=== PATIENT | female | born 1995 | race Caucasian/White ===

== ENCOUNTER 2022-06-11 15:27 | Emergency (ER) | payer OTHER, SELFPAY ==
--- OUTSIDE RECORDS SUMMARY | 2022-06-11 15:37 | XMS REPORT | Continuity of Care Document ---
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 leyva de 10 MG 00 for spasm, Oral Tablet X 3 day, # [Flexeril] 6 tab, 0 Refill(s) ibuprofen Yes 800 mg = 1 Me moria 800 mg oral 03-29 tab, PO, l tablet 04:07: Q8H, PRN Raul 00 Pain, Take with food, # 15 tab, 0 Refill(s) Ketorolac No 60 mg, Memori a 03-29 Route: IM, l 03:02: Drug form: Raul 00 INJ, ONCE, Dosing Weight 54.545, kg, Priority: STAT, Start date: 03/28/16 22:02:00 CDT, Stop date: 03/28/16 22:02:00 CDT Metoclopram 2014-10 Yes 10 mg = 1 M emoria maren 10 MG 0-08 tab, PO, l Oral Tablet 23:13: QID, X 7 He rmlisbet [Reglan] 00 day, # 28 tab, 0 Refill(s) Sodium 2014-10 No 500 mL, Memoria Chloride 0-08 500 ml/hr, l 0.154 21:00: Infuse Alta MEQ/ML 00 Over: 1 Injectable hr, Route: Solution IV, 500, Drug form: INJ, ONCE, Priority: STAT, Dosing Weight 54.545 kg, Start date: 07/08/15 16:00:00, Duration: 1 doses or times, Stop date: 07/08/15 16:00:00 Tylenol 2014-10 No Notes: Do Memor ia 0-08 not exceed l 21:00: 4 gm/day. Alta (Same as: Tylenol) Zofran 2014-10 No Notes: Memoria 0-08 (Same as: l 21:00: Zofran) MEDICATION WASTE Product Size: 4 mg Product Wasted: ___ mg Ondansetron 2014-10 No 4 mg, Memor ia 0-08 Route: l 20:59: IVP, ONCE, Dosing Weight 54.545, kg, Priority: STAT, Start date: 07/08/15 15:59:00, Stop date: 07/08/15 15:59:00 Saline 2014-1 No 10 mL, Memoria Flush 0.9% 0-08 Route: l 20:59: IVP, Drug Form: INJ, Dosing Weight 54.545, kg, PRN, PRN Line Flush, Start date: 07/08/15 15:59:00, Duration: 30 day, Stop date: 08/07/15 14:58:00 Vital Signs Vital Name Observation Time Observation Value Comments Source Systolic blood 2022-01-11 00:58:00 110 mm[Hg[facility] Diastolic blood 2022-01-11 00:58:00 60 mm[Hg] Unive [facility] Heart rate 2022-01-11 00:58:00 93 /min [facility] Body temperature 2022-01-11 00:58:00 37.22 [place] [facility] Respiratory rate 2022-01-11 00:58:00 18 /min [facility] Body height 2022-01-11 00:58:00 154.9 cm [facility] Body weight 2022-01-11 00:58:00 58.06 kg [facility] BMI 2022-01-11 00:58:00 24.19 kg/m2 [facility] Oxygen saturation in 2022-01-11 00:58:00 98 /min [facility] Arterial blood by [facility] Pulse oximetry [place] Height/Length 2021-10-18 08:41:17 154.94 cm Measured Weight Dosing 2021-10-18 08:41:17 78.47 kg Height/Length 2021-10-18 08:39:44 154.94 cm Measured Weight Dosing 2021-10-18 08:39:44 78.47 kg Height/Length 2021-10-18 08:38:01 154.94 cm Measured Weight Dosing 2021-10-18 08:38:01 78.47 kg Height/Length 2021-10-18 08:37:37 154.94 cm Measured Weight Dosing 2021-10-18 08:37:37 78.47 kg Height/Length 2021-10-18 08:37:06 154.94 cm Measured Weight Dosing 2021-10-18 08:37:06 78.47 kg Height/Length 2021-10-18 08:36:56 154.94 cm Measured Weight Dosing 2021-10-18 08:36:56 78.47 kg Height/Length 2021-10-18 08:36:49 154.94 cm Measured Weight Dosing 2021-10-18 08:36:49 78.47 kg Height/Length 2021-10-18 08:36:34 154.94 cm Measured Weight Dosing 2021-10-18 08:36:34 78.47 kg Weight Dosing 2019-10-15 15:23:27 Height/Length 2019-10-15 15:23:27 Measured Temperature Oral (F) 2022-05-26 21:45:00 98.4 F [facility] Heart Rate 2022-05-26 21:45:00 [facility] Respitory Rate 2022-05-26 21:45:00 Memori al [place] Systolic (mm Hg) 2022-05-26 21:45:00 Gurpreet rial Raul Diastolic (mm Hg) 2022-05-26 21:45:00 Mem orial Raul Heart Rate 2022-05-26 21:17:59 [facility] Respitory Rate 2022-05-26 21:17:59 Memori al Raul Temperature Oral (F) 2022-05-26 21:17:02 98.4 F [facility] Systolic (mm Hg) 2022-05-26 21:16:57 Gurpreet rial Alta Diastolic (mm Hg) 2022-05-26 21:16:57 Mem orial [place] Heart Rate 2022-05-26 21:16:57 [facility] Respitory Rate 2022-05-26 19:28:50 Memori al Raul Systolic (mm Hg) 2022-05-26 19:28:42 Gurpreet rial Alta Diastolic (mm Hg) 2022-05-26 19:28:42 Mem orial Raul Temperature Oral (F) 2022-05-26 19:28:08 98.3 F [facility] Weight 2022-05-26 16:11:00 [facility] Temperature Oral (F) 2020-10-13 11:07:00 98.9 F [facility] Heart Rate 2020-10-13 11:07:00 [facility] Respitory Rate 2020-10-13 11:07:00 Memori al Raul Systolic (mm Hg) 2020-10-13 11:07:00 Gurpreet rial Raul Diastolic (mm Hg) 2020-10-13 11:07:00 Mem orial Raul Systolic (mm Hg) 2020-10-13 05:33:00 Gurpreet rial Raul Diastolic (mm Hg) 2020-10-13 05:33:00 Mem orial Raul Temperature Oral (F) 2020-10-13 04:57:00 98.6 F [facility] Heart Rate 2020-10-13 04:57:00 [facility] Systolic (mm Hg) 2020-10-13 04:57:00 Gurpreet rial Raul Diastolic (mm Hg) 2020-10-13 04:57:00 Mem orial Raul Respitory Rate 2020-10-13 04:57:00 Memori al [place] Temperature Oral (F) 2020-10-13 01:38:00 99.1 F [facility] Respitory Rate 2020-10-13 01:38[facility] 2020-10-13 01:38:00 [facility] Height 2020-10-13 00:38:00 157.48 cm [facility] BMI Calculated 2020-10-13 00:38:00 [facility] al Alta Weight 2020-10-13 00:38:00 [facility] oxygen saturation, 2020-08-16 09:31:12 98 /min [facility] oximetry Health blood pressure, 2020-08-16 09:31:12 78 mm[Hg] [facility] diastolic Health blood pressure, 2020-08-16 09:31:12 118 mm[Hg] [facility] systolic Health pulse rate 2020-08-16 09:31:12 91 /[facility] temperature E&M 2020-08-16 09:31:12 98.0 [degF] [facility] Health weight E&M 2020-08-16 09:31:12 153 [lb_av] [facility] weight in kilograms 2020-08-16 09:31:12 69.55 kg L [facility]M [facility] height in 2020-08-16 09:31:12 [facility] [address] [facility] oxygen saturation, 2020-06-30 09:13:17 98 /min [facility] oximetry Health blood pressure, 2020-06-30 09:13:17 63 mm[Hg] Legac y [facility] diastolic Health blood pressure, 2020-06-30 09:13:17 103 mm[Hg] Legac y [facility] systolic Health pulse rate 2020-06-30 09:13:17 76 [facility] temperature E&M 2020-06-30 09:13:17 98.2 [degF] [facility] Health height in 2020-06-30 09:13:17 [facility] [facility] weight E&M 2020-06-30 09:13:17 137 [facility] weight in kilograms 2020-06-30 09:13:17 62.27 kg L [facility] Respitory Rate 2019-04-11 16:46:00 Memori al Raul Systolic (mm Hg) 2019-04-11 16:46:00 Gurpreet rial Raul Diastolic (mm Hg) 2019-04-11 16:46:00 Mem orial Raul Temperature Oral (F) 2019-04-11 16:46:00 98.5 F [facility] Heart Rate 2019-04-11 16:46:00 [facility] Respitory Rate 2019-04-11 12:00:00 Memori al [place] Temperature Oral (F) 2019-04-11 12:00:00 98.9 F [facility] Heart Rate 2019-04-11 12:00:00 [facility] Systolic (mm Hg) 2019-04-11 12:00:00 Gurpreet rial Alta Diastolic (mm Hg) 2019-04-11 12:00:00 Mem orial [place] Respitory Rate 2019-04-11 08:00:00 Memori al Raul Systolic (mm Hg) 2019-04-11 08:00:00 Gurpreet rial Raul Diastolic (mm Hg) 2019-04-11 08:00:00 Mem orial Raul Temperature Oral (F) 2019-04-11 08:00:00 98.6 F [facility] Weight 2019-04-10 20:52:00 [facility] Heart Rate 2019-04-10 20:52:00 [facility] Systolic (mm Hg) 2019-03-20 09:31:00 Gurpreet rial Raul Diastolic (mm Hg) 2019-03-20 09:31:00 Mem orial Raul Respitory Rate 2019-03-20 09:31:00 Memori al Raul Temperature Oral (F) 2019-03-20 09:31:00 98.0 F [facility] Heart Rate 2019-03-20 09:31:00 [facility] Systolic (mm Hg) 2019-03-20 08:00:00 Gurpreet rial Raul Diastolic (mm Hg) 2019-03-20 08:00:00 Mem orial Raul Respitory Rate 2019-03-20 08:00:00 Memori al Raul Heart Rate 2019-03-20 08:00:00 [facility] Temperature Oral (F) 2019-03-20 08:00:00 97.7 F [facility] Temperature Oral (F) 2019-03-20 07:22:00 97.7 F [facility] Weight 2019-03-20 07:22:00 [facility] BMI Calculated 2019-03-20 07:22:00 Memori al Raul Height 2019-03-20 07:22:00 157.48 cm [facility] Heart Rate 2019-03-20 07:22:00 [facility] Systolic (mm Hg) 2019-03-20 07:22:00 Gurpreet rial Raul Diastolic (mm Hg) 2019-03-20 07:22:00 Mem orial Alta Respitory Rate 2019-03-20 07:22:00 Memori al [place] Respitory Rate 2018-12-06 07:08:00 Memori al [place] Systolic (mm Hg) 2018-12-06 07:08:00 Gurpreet rial Alta Diastolic (mm Hg) 2018-12-06 07:08:00 Mem orial Raul Height 2018-12-06 05:40:00 170.18 cm [facility] Weight 2018-12-06 05:40:00 [facility] BMI Calculated 2018-12-06 05:40:00 Memori al Raul Systolic (mm Hg) 2018-12-06 05:40:00 Gurpreet rial Raul Diastolic (mm Hg) 2018-12-06 05:40:00 Mem orial [place] Respitory Rate 2018-12-06 05:40:00 Memori al [place] Heart Rate 2018-12-06 05:40:00 [facility] Temperature Oral (F) 2018-12-06 05:40:00 98 F [facility] Heart Rate 2017-03-30 13:00:00 [facility] Respitory Rate 2017-03-30 13:00:00 Memori al [place] Temperature Oral (F) 2017-03-30 13:00:00 98.6 F [facility] Systolic (mm Hg) 2017-03-30 13:00:00 Gurpreet rial Alta Diastolic (mm Hg) 2017-03-30 13:00:00 Mem orial [place] Systolic (mm Hg) 2017-03-30 05:03:00 Gurpreet rial [place]ta Diastolic (mm Hg) 2017-03-30 05:03:00 Mem orial [place] Respitory Rate 2017-03-30 05:03:00 Memori al Raul Heart Rate 2017-03-30 05:03:00 [facility] Temperature Oral (F) 2017-03-30 05:03:00 97.6 F [facility] Respitory Rate 2017-03-29 21:00:00 Memori al [place] Systolic (mm Hg) 2017-03-29 21:00:00 Gurpreet rial Alta Diastolic (mm Hg) 2017-03-29 21:00:00 Mem orial [place] Heart Rate 2017-03-29 21:00:00 [facility] Temperature Oral (F) 2017-03-29 21:00:00 98.4 F [facility] BMI Calculated 2017-03-28 18:04:00 Memori al Raul Height 2017-03-28 18:04:00 154.94 cm [facility] Weight 2017-03-28 18:04:00 [facility] Diastolic (mm Hg) 2016-12-04 20:49:00 Mem orial Raul Systolic (mm Hg) 2016-12-04 20:49:00 Gurpreet rial Raul Respitory Rate 2016-12-04 20:49:00 Memori al Raul Temperature Oral (F) 2016-12-04 20:49:00 98.1 F [facility] Heart Rate 2016-12-04 20:49:00 [facility] Systolic (mm Hg) 2016-12-04 18:33:00 Gurpreet rial Raul Diastolic (mm Hg) 2016-12-04 18:33:00 Mem orial Alta Respitory Rate 2016-12-04 18:33:00 Memori al Raul Heart Rate 2016-12-04 18:33:00 [facility] Height 2016-12-04 18:33:00 154.94 cm [facility] BMI Calculated 2016-12-04 18:33:00 Memori al [place] Temperature Oral (F) 2016-12-04 18:33:00 98.0 F [facility] Weight 2016-12-04 18:33:00 [facility] Respitory Rate 2016-03-29 04:10:00 Memori al Raul Temperature Oral (F) 2016-03-29 04:10:00 98.4 F [facility] Heart Rate 2016-03-29 04:10:00 [facility] Systolic (mm Hg) 2016-03-29 04:10:00 Gurpreet rial Raul Diastolic (mm Hg) 2016-03-29 04:10:00 Mem orial Alta BMI Calculated 2016-03-29 02:41:00 Memori al Raul Weight 2016-03-29 02:41:00 [facility] Height 2016-03-29 02:41:00 154.94 cm [facility] Heart Rate 2016-03-29 02:41:00 [facility] Respitory Rate 2016-03-29 02:41:00 Memori al [place] Temperature Oral (F) 2016-03-29 02:41:00 98.2 F [facility] Systolic (mm Hg) 2016-03-29 02:41:00 Gurpreet rial Alta Diastolic (mm Hg) 2016-03-29 02:41:00 Mem orial Raul Respitory Rate 2015-07-24 18:43:00 Memori al Raul Temperature Oral (F) 2015-07-24 18:43:00 98.5 F [facility] Heart Rate 2015-07-24 18:43:00 [facility] Systolic (mm Hg) 2015-07-24 18:43:00 Gurpreet rial Raul Diastolic (mm Hg) 2015-07-24 18:43:00 Mem orial Raul Weight 2015-07-24 17:46:00 [facility] BMI Calculated 2015-07-24 17:46:00 Memori al Raul Systolic (mm Hg) 2015-07-24 17:46:00 Gurpreet rial Alta Diastolic (mm Hg) 2015-07-24 17:46:00 Mem orial Raul Height 2015-07-24 17:46:00 154.94 cm [facility] Temperature Oral (F) 2015-07-24 17:46:00 97.9 F [facility] Respitory Rate 2015-07-24 17:46:00 Memori al Raul Heart Rate 2015-07-24 17:46:00 [facility] Temperature Oral (F) 2015-07-08 23:39:00 99.3 F [facility] Respitory Rate 2015-07-08 22:42:00 Memori al [place] Heart Rate 2015-07-08 22:42:00 [facility] Systolic (mm Hg) 2015-07-08 22:42:00 Gurpreet rial Raul Diastolic (mm Hg) 2015-07-08 22:42:00 Mem orial [facility] Heart Rate 2015-07-08 21:55:00 [facility] Respitory Rate 2015-07-08 21:55:00 Memori al Raul Systolic (mm Hg) 2015-07-08 21:55:00 Gurpreet rial Raul Diastolic (mm Hg) 2015-07-08 21:55:00 Mem orial Raul Weight 2015-07-08 19:50:00 [facility] Height 2015-07-08 19:50:00 154.94 cm [facility] Temperature Oral (F) 2015-07-08 19:50:00 98.3 F [facility] BMI Calculated 2015-07-08 19:50:00 Memori al Raul Systolic (mm Hg) 2015-07-08 19:50:00 Gurpreet rial Raul Diastolic (mm Hg) 2015-07-08 19:50:00 Mem orial Alta Heart Rate 2015-07-08 19:50:00 [facility] Respitory Rate 2015-07-08 19:50:00 Memori al Raul Procedures Procedure Date / Time Performing Clinician Source Performed NOTICE OF PRIVACY 2022-01-11 00:38:28 Doctor Unassigned, [facility] [place] [facility] CONSENT/REFUSAL FOR 2022-01-11 00:38:11 Doctor Unassigned, [facility] DIAGNOSIS AND TREATMENT [facility] LEVONORGESTREL (LILETTA) 2020-08-16 10:24:10 Francisco Becca Destiny monzon [facility] [address] [facility] Vaginal delivery of fetus 2014-10-01 00:00:00 Me jamar Carter Encounters Start End Encounter Admission Attending Care Care Encounter Source Date/Time Date/Time Type Type Clinicians Facility Department ID 2022-05-27 Outpatient [facility] [id number] [place] 08:45:[id number] [place] [address] 2021-07-17 Outpatient lc.rrobinso [facility] [id number] [facility] 14:39:19 n [id number] [facility] 2021-07-17 Outpatient lc.rrobinso [facility] [id number] [facility] 13:46:47 n [id number] [facility] 2021-07-17 Outpatient lc.rrobinso [facility] [id number] [facility] 11:40:59 n [id number] [facility] 2021-07-17 Outpatient lc.rrobinso [facility] [id number] [facility] 10:16:46 n [id number] [facility] 2021-07-14 Outpatient lc.rrobinso [facility] [id number] [facility] 22:06:54 n [id number] [facility] 2021-07-14 Outpatient lc.rrobinso [facility] [id number] Legacy 21:18:39 n [id number] [facility] 2021-07-14 Outpatient lc.rrobinso [facility] [id number] [facility] 20:59:30 n [id number] [facility] 2021-07-14 Outpatient lc.rrobinso [facility] [id number] [facility] 20:50:40 n [id number] [facility] 2021-07-14 Outpatient [facility] [id number] [facility] 20:10:01 [id number] [facility] 2022-05-26 2022-05-26 Emergency [facility] [id number] 16:07[facility]15 21:48:[address] 2022-05-26 2022-05-26 Outpatient Ricci [facility] [id number] 11:07:15 16:48:00 Maddi Nickerson 2022-05-26 2022-05-26 Emergency E RICCI, [id number] 11:07:00 16:48:00 LINDA 2022-01-10 2022-01-10 Emergency [place], [facility] [id number] Univers 19:53:00 20:20:00 [facility] [id number] ity [facility] [id number] [facility] [id number] [place] [id number] [address] 2022-01-10 2022-01-10 Emergency X RIDSEB, [facility] ERT [id number] Univers 19:53:00 20:20:00 MARINA [facility] 2020-10-13 2020-10-13 Emergency [facility] [id number] Memoria 00:22:49 11:10:00 r Alta 08 [facility] 2020-10-12 2020-10-13 Outpatient Dulce Chun [facility] [id number] 18:22:49 05:10:00 Torie 08 2020-08-16 2020-08-16 Office Becca Singh [facility] [id number] [facility] 00:00:00 00:00:00 Visit Celia Ang [id number] Beth Jackson [facility] 2020-06-30 2020-06-30 Office Becca Singh [facility] [id number] [facility] 00:00:00 00:00:00 Visit Celia Ang [id number] Maral Centeno [facility] 2019-10-15 2019-10-15 Outpatient [address] [place] [facility] [place] [id number] 14:43:00 14:43:00 [place] [facility] 2019-10-15 2019-10-15 Outpatient 3 [place] [facility] [place] [id number] 14:43:00 14:43:00 [place] -[id number] [facility] 2019-04-10 2019-04-11 Emergency nullFl[facility] [id number] Memoria 20:44:00 16:54:00 winter Golden l [facility] 2019-04-10 2019-04-11 Outpatient Marilin Kennedy [facility] [id number] 15:44:00 11:54:00 Mario 07 2019-04-10 2019-04-10 Emergency E [facility] [id number] Memoria 15:44:00 15:44:00 shanta Omer l [facility] 2019-03-20 2019-03-20 Emergency [facility]Fl[facility] [id number] Memoria 07:22:31 09:45:00 winter Carter Lucy [facility] 2019-03-20 2019-03-20 Outpatient MARK Kaplan [facility] [id number] 02:22:31 04:45:00 Lisa 06 Ana Maria Stack 2019-03-20 2019-03-20 Emergency E [facility] [id number] Memoria 02:22:00 02:22:00 shanta Carter Li Kan l 2018-12-06 2018-12-06 Emergency [facility] [id number] Memoria 05:19:00 07:16:00 winter Daugherty [facility] 2018-12-05 2018-12-06 Outpatient MARK Kaplan [facility] [id number] 23:19:00 01:16:00 Lisa 05 Ana Maria Stack 2018-06-21 2018-06-22 [facility] [id number] Donovan 00:00:00 00:00:00 [facility] 2017-03-28 2017-03-30 Inpatient [facility]Fl[facility] [id number] Memoria 17:40:00 16:41:00 winter womack [facility] 2017-03-28 2017-03-30 Outpatient Daniel [facility] [id number] 12:40:00 11:41:00 Maritza 04 2016-12-04 2016-12-04 Emergency [facility] [id number] Memoria 18:26:00 21:47:00 winter Baum l [facility] 2016-12-04 2016-12-04 Outpatient Marie [facility] [id number] 12:26:00 15:47:00 Elaina rich 03 Madie 2016-03-29 2016-03-29 EC nullFlavo [facility] [id number] Memoria 02:27:00 04:13:00 Emergency r Alta 02 [facility] 2016-03-28 2016-03-28 Outpatient Rodo, [facility] [id number] 21:27:00 23:13:00 Thu Colon 02 2015-07-24 2015-07-24 EC nullFlavo [facility] [id number] Memoria 17:39:00 19:35:00 Emergency r Alta 01 [facility] 2015-07-24 2015-07-24 Outpatient Julio C Juarez [facility] [id number] 12:39:00 14:35:00 Isaac 2015-07-08 2015-07-08 EC nullFlavo [facility] [id number] Memoria 19:14:00 23:42:00 Emergency r Raul 00 [facility] 2015-07-08 2015-07-08 Outpatient Checoreynaoxana, [facility] [id number] 14:14:00 18:42:00 Ejieroghene 00 Deidra Results Test Description Test Time Test Comments Results Result Comments Source CHEM PANEL 2022-05-26 19:51:00 Test Item Value Reference Range Interpretation Comme nts Glucose Lvl (test code = Glucose Lvl) 91 70-99 [facility]2022-08-26 19:51:00 Test Item Value Reference Range Interpretation Comments BUN (test code = BUN) 10 7-22 [facility]2022-08-26 19:51:00 Test Item Value Reference Range Interpretation Comments Creatinine Lvl (test code = Creatinine 0.92 0.50-1.40 Lvl) [facility] [id number] 19:51:00 Test Item Value Reference Range Interpretation Comments Sodium Lvl (test code = Sodium Lvl) 137 135-145 [facility]2022-08-26 19:51:00 Test Item Value Reference Range Interpretation Comments Chloride Lvl (test code = Chloride Lvl) 106 95-109 [facility] [id number] 19:51:00 Test Item Value Reference Range Interpretation Comments CO2 (test code = CO2) 25 [place] [id number] 19:51:00 Test Item Value Reference Range Interpretation Comments AGAP (test code = AGAP) 11.8 10.0-20.0 [place] [id number] 19:51:00 Test Item Value Reference Range Interpretation Comments Calcium Lvl (test code = Calcium Lvl) 8.9 8.5-10.5 [place] [id number] 19:51:00 Test Item Value Reference Range Interpretation Comments Potassium Lvl (test code = Potassium 5.8 3.5-5.1 Lvl) [place] [id number] 19:51:00 Test Item Value Reference Range Interpretation Comments eGFR (test code = eGFR) 86 [place] [id number] 19:15:15 Test Item Value Reference Range Interpretation Comments Lactic Acid Lvl (test code = Lactic 11.7 0.5-2.2 Acid Lvl) [place] [id number] 17:57:00 Test Item Value Reference Range Interpretation Comments Glucose Lvl (test code = Glucose Lvl) 98 70-99 [place] [id number] 17:57:00 Test Item Value Reference Range Interpretation Comments BUN (test code = BUN) 9 - [place] [id number] 17:57:00 Test Item Value Reference Range Interpretation Comments Creatinine Lvl (test code = Creatinine 1.13 0.50-1.40 Lvl) [place] [id number] 17:57:00 Test Item Value Reference Range Interpretation Comments Sodium Lvl (test code = Sodium Lvl) 139 135-145 [place] [id number] 17:57:00 Test Item Value Reference Range Interpretation Comments Potassium Lvl (test code = Potassium 3.8 3.5-5.1 Lvl) [place] [id number] 17:57:00 Test Item Value Reference Range Interpretation Comments Chloride Lvl (test code = Chloride Lvl) 106 95-109 [place] [id number] 17:57:00 Test Item Value Reference Range Interpretation Comments CO2 (test code = CO2) 15 [place] [id number] 17:57:00 Test Item Value Reference Range Interpretation Comments Calcium Lvl (test code = Calcium Lvl) 9.4 8.5-10.5 [facility]2022-08-26 17:57:00 Test Item Value Reference Range Interpretation Comments AGAP (test code = AGAP) 21.8 10.0-20.0 [facility]2022-08-26 17:57:00 Test Item Value Reference Range Interpretation Comments eGFR (test code = eGFR) 68 [facility] 17:57:00 Test Item Value Reference Range Interpretation Comments WBC X 10x3 (test code = WBC X 10x3) 17.7 3.7-10.4 [place] 110482-08-26 17:57:00 Test Item Value Reference Range Interpretation Comments RBC X 10x6 (test code = RBC X 10x6) 5.61 4.20-5.40 [facility]15[facility]55-17 17:57:00 Test Item Value Reference Range Interpretation Comments Hgb (test code = Hgb) 19.1 12.0-16.0 [facility]xputtkURGFZYFAYM6966-13-28 17:57:00 Test Item Value Reference Range Interpretation Comments Hct (test code = Hct) 55.6 36.0-48.0 [place] 110482-08-26 17:57:00 Test Item Value Reference Range Interpretation Comments MCV (test code = MCV) 99.1 80.0-98.0 [place] 110482-08-26 17:57:00 Test Item Value Reference Range Interpretation Comments MCH (test code = MCH) 34.0 pg 27.0-31.0 [place] 110482-08-26 17:57:00 Test Item Value Reference Range Interpretation Comments MCHC (test code = MCHC) 34.3 32.0-36.0 [place] 110482-08-26 17:57:00 Test Item Value Reference Range Interpretation Comments RDW (test code = RDW) 14.4 11.5-14.5 [place] 110482-08-26 17:57:00 Test Item Value Reference Range Interpretation Comments Platelet (test code = Platelet) 394 133-450 [facility]WjhudknUABRLOWMOM4179-18-79 17:57:00 Test Item Value Reference Range Interpretation Comments MPV (test code = MPV) 8.0 7.4-10.4 [place] [address]-08-26 17:57:00 Test Item Value Reference Range Interpretation Comments Segs (test code = Segs) 83.0 45.0-75.0 [place] [address]-08-26 17:57:00 Test Item Value Reference Range Interpretation Comments Lymphocytes (test code = Lymphocytes) 11.1 20.0-40.0 [place] [address]-08-26 17:57:00 Test Item Value Reference Range Interpretation Comments Monocytes (test code = Monocytes) 5.1 2.0-12.0 [place] [address]-08-26 17:57:00 Test Item Value Reference Range Interpretation Comments Eosinophils (test code = 0.5 See_Comment [A utomated message] The Eosinophils) system which ge nerated this result tra nsmitted reference range : <=4.0. The reference r jericho was not used to int erpret this result as normal/abnormal . [place] [address]-08-26 17:57:00 Test Item Value Reference Range Interpretation Comments Basophils (test code = 0.3 See_Comment [Aut omated message] The Basophils) system which ge nerated this result tra nsmitted reference range : <=1.0. The reference r jericho was not used to int erpret this result as normal/abnormal . [place] [address]-08-26 17:57:00 Test Item Value Reference Range Interpretation Comments Neutrophils # (test code = Neutrophils 14.7 1.5-8.1 #) [place] [address]-08-26 17:57:00 Test Item Value Reference Range Interpretation Comments Lymphocytes # (test code = Lymphocytes 2.0 1.0-5.5 #) [place] [address]-08-26 17:57:00 Test Item Value Reference Range Interpretation Comments Monocytes # (test code 0.9 See_Comment [Aut omated message] The = Monocytes #) system which generated this result tra nsmitted reference range : <=0.8. The reference r jericho was not used to int erpret this result as normal/abnormal . [place] [address]-08-26 17:57:00 Test Item Value Reference Range Interpretation Comments Eosinophils # (test code 0.1 See_Comment [A utomated message] The = Eosinophils #) system Balloon[employer] h generated this result tra nsmitted reference range : <=0.5. The reference r jericho was not used to int erpret this result as normal/abnormal . [facility] [id number] 04:20:00 Test Item Value Reference Range Interpretation Comments U Amph Scr (test code Positive *ABN*(10/12/20 = U Amph Scr) 10:20 PM) [facility] [id number] 04:20:00 Test Item Value Reference Range Interpretation Comments U Gifty Scr (test code Negative *NA*(10/12/20 = U Gifty Scr) 10:20 PM) [facility] [id number] 04:20:00 Test Item Value Reference Range Interpretation Comments U Benzodiaz Scr (test Negative *NA*(10/12/20 code = U Benzodiaz Scr) 10:20 PM) [facility] [id number] 04:20:00 Test Item Value Reference Range Interpretation Comments U Cocaine Scr (test Negative *NA*(10/12/20 code = U Cocaine Scr) 10:20 PM) [facility] [id number] 04:20:00 Test Item Value Reference Range Interpretation Comments U Cannab Scr (test Positive *ABN*(10/12/20 code = U Cannab Scr) 10:20 PM) [facility] [id number] 04:20:00 Test Item Value Reference Range Interpretation Comments U Opiate Scr (test Negative *NA*(10/12/20 code = U Opiate Scr) 10:20 PM) [facility] [id number] 04:20:00 Test Item Value Reference Range Interpretation Comments U Phencyclidine Scr (test Negative code = U Phencyclidine *NA*(10/12/20 10:20 Scr) PM) [facility] [id number] 04:20:00 Test Item Value Reference Range Interpretation Comments UDS Note (test code = See Note (10/12/20 10:20 UDS Note) PM) [facility] VedchxxSWHTAKKTPL9491-46-51 04:20:00 Test Item Value Reference Range Interpretation Comments WBC (test code = WBC) 14.0 3.7-10.4 [facility] ApjdgapZEGDVMDHZK3331-07-78 04:20:00 Test Item Value Reference Range Interpretation Comments RBC (test code = RBC) 4.13 4.20-5.40 [facility] HospitalTjfufusEZSQXEAWLG8997-67-61 04:20:00 Test Item Value Reference Range Interpretation Comments Hgb (test code = Hgb) 13.3 12.0-16.0 [facility] HospitalChzzrsfDLOHJBJCYM7076-27-00 04:20:00 Test Item Value Reference Range Interpretation Comments Hct (test code = Hct) 39.2 36.0-48.0 [facility] HospitalLyhtmwqLRZSOZMLBI0506-82-31 04:20:00 Test Item Value Reference Range Interpretation Comments MCV (test code = MCV) 95.0 80.0-98.0 [facility] HospitalOlbfihuAENDWYAOTV8762-29-76 04:20:00 Test Item Value Reference Range Interpretation Comments MCH (test code = MCH) 32.1 pg 27.0-31.0 [facility] HospitalQxisnxlPHGIYGDKLH3841-27-36 04:20:00 Test Item Value Reference Range Interpretation Comments MCHC (test code = MCHC) 33.8 32.0-36.0 [facility] HospitalIhyksmoMOBYMPIQTA9988-52-55 04:20:00 Test Item Value Reference Range Interpretation Comments RDW (test code = RDW) 12.7 11.5-14.5 [facility] HospitalSraiqheFPLQLCLYUW7436-77-73 04:20:00 Test Item Value Reference Range Interpretation Comments Platelet (test code = Platelet) 269 133-450 [facility] HospitalFxyzxbuHGMKSJUMXW9597-82-67 04:20:00 Test Item Value Reference Range Interpretation Comments MPV (test code = MPV) 8.1 7.4-10.4 [facility] HospitalUfwnlpvXWUHDWDVBJ9691-72-17 04:20:00 Test Item Value Reference Range Interpretation Comments Segs (test code = Segs) 78.0 45.0-75.0 [facility] HospitalYaygvaaDPCKFNQJCI8043-53-79 04:20:00 Test Item Value Reference Range Interpretation Comments Lymphocytes (test code = Lymphocytes) 14.3 20.0-40.0 [facility] HospitalMblhdftLQDVJEPXUJ2238-96-79 04:20:00 Test Item Value Reference Range Interpretation Comments Monocytes (test code = Monocytes) 7.1 2.0-12.0 [facility] HospitalKfworvvHNFUQQVSNL7679-42-35 04:20:00 Test Item Value Reference Range Interpretation Comments Basophils (test code = 0.6 See_Comment [Aut omated message] The Basophils) system which ge nerated this result tra nsmitted reference range : <=1.0. The reference r jericho was not used to int erpret this result as normal/abnormal . [facility] HospitalCxccbmwMRAFBRTRCU1101-91-54 04:20:00 Test Item Value Reference Range Interpretation Comments Neutrophils # (test code = Neutrophils 10.9 1.5-8.1 #) [facility] HospitalWsjpfauPCIVWMNTKK5687-49-34 04:20:00 Test Item Value Reference Range Interpretation Comments Lymphocytes # (test code = Lymphocytes 2.0 1.0-5.5 #) [facility] HospitalNccwmxdMFXZFDGQAZ5921-99-44 04:20:00 Test Item Value Reference Range Interpretation Comments Monocytes # (test code 1.0 See_Comment [Aut omated message] The = Monocytes #) system which generated this result tra nsmitted reference range : <=0.8. The reference r jericho was not used to int erpret this result as normal/abnormal . [facility] HospitalVdtfyezFJXWYKSCHB2506-63-16 04:20:00 Test Item Value Reference Range Interpretation Comments Basophils # (test code 0.1 See_Comment [Aut omated message] The = Basophils #) system which generated this result tra nsmitted reference range : <=0.2. The reference r jericho was not used to int erpret this result as normal/abnormal . [facility] [id number] 04:20:00 Test Item Value Reference Range Interpretation Comments UA Color (test code = Yellow *NA*(10/12/20 UA Color) 10:20 PM) [facility] AND [id number] 04:20:00 Test Item Value Reference Range Interpretation Comments UA Turbidity (test code = Clear (10/12/20 10:20 UA Turbidity) PM) [facility] AND [id number] 04:20:00 Test Item Value Reference Range Interpretation Comments UA Spec Grav (test code = UA Spec 1.023 1 Grav) [facility] AND [id number] 04:20:00 Test Item Value Reference Range Interpretation Comments UA pH (test code = UA pH) 5.0 1 5.0-8.0 [facility] AND [id number] 04:20:00 Test Item Value Reference Range Interpretation Comments UA Protein (test code = UA Protein) 100 mg/dL [facility] AND [id number] 04:20:00 Test Item Value Reference Range Interpretation Comments UA Glucose (test code = UA Negative mg/dL Glucose) [facility] AND [id number] 04:20:00 Test Item Value Reference Range Interpretation Comments UA Ketones (test code = UA Ketones) 80 mg/dL [facility] AND [id number] 04:20:00 Test Item Value Reference Range Interpretation Comments UA Bili (test code = Negative *NA*(10/12/20 UA Bili) 10:20 PM) [facility] AND [id number] 04:20:00 Test Item Value Reference Range Interpretation Comments UA Blood (test code = Negative (10/12/20 10:20 UA Blood) PM) [facility] AND [id number] 04:20:00 Test Item Value Reference Range Interpretation Comments UA Nitrite (test code Negative (10/12/20 10:20 = UA Nitrite) PM) [facility] AND [id number] 04:20:00 Test Item Value Reference Range Interpretation Comments UA Leuk Est (test Negative (10/12/20 10:20 code = UA Leuk Est) PM) [facility] AND [id number] 04:20:00 Test Item Value Reference Range Interpretation Comments UA Sq Epi (test code = UA Sq Occasional /LPF Epi) [facility] AND [id number] 04:20:00 Test Item Value Reference Range Interpretation Comments UA WBC (test code = 3 See_Comment [Automa nallely message] The UA WBC) system which ge nerated this result transmit nallely reference range : <=5. The reference range was not used to interpr et this result as dennys l/abnormal. [facility] AND [id number] 04:20:00 Test Item Value Reference Range Interpretation Comments UA RBC (test code = 1 See_Comment [Automa nallely message] The UA RBC) system which ge nerated this result transmit nallely reference range : <=2. The reference range was not used to interpr et this result as dennys l/abnormal. [facility] AND [id number] 04:20:00 Test Item Value Reference Range Interpretation Comments UA Mucus (test code = UA Mucus) Few /LPF [facility] AND [id number] 04:20:00 Test Item Value Reference Range Interpretation Comments UA Hyal Cast (test 8 See_Comment [Automat ed message] The code = UA Hyal Cast) system which generated this result transmit nallely reference range : <=2. The reference range was not used to interpr et this result as dennys l/abnormal. [place] 205901-01-13 04:20:00 Test Item Value Reference Range Interpretation Comments UA Urobilinogen (test code = UA <=1.0 mg/dL 0.1-1.0 Urobilinogen) [place] 654601-01-13 01:58:00 Test Item Value Reference Range Interpretation Comments Glucose Lvl (test code = Glucose Lvl) 60 70-99 [place] 654601-01-13 01:58:00 Test Item Value Reference Range Interpretation Comments BUN (test code = BUN) 31 7-22 [place] 654601-01-13 01:58:00 Test Item Value Reference Range Interpretation Comments Creatinine Lvl (test code = Creatinine 1.23 0.50-1.40 Lvl) [place] 654601-01-13 01:58:00 Test Item Value Reference Range Interpretation Comments Sodium Lvl (test code = Sodium Lvl) 140 135-145 [place] 654601-01-13 01:58:00 Test Item Value Reference Range Interpretation Comments Potassium Lvl (test code = Potassium 5.0 3.5-5.1 Lvl) [place] 654601-01-13 01:58:00 Test Item Value Reference Range Interpretation Comments Chloride Lvl (test code = Chloride Lvl) 110 95-109 [place] 654601-01-13 01:58:00 Test Item Value Reference Range Interpretation Comments CO2 (test code = CO2) 18 24-32 [place] 654601-01-13 01:58:00 Test Item Value Reference Range Interpretation Comments Calcium Lvl (test code = Calcium Lvl) 9.8 8.5-10.5 [place] 654601-01-13 01:58:00 Test Item Value Reference Range Interpretation Comments Albumin Lvl (test code = Albumin Lvl) 5.1 3.5-5.0 [facility] [employer] [id number] 01:58:00 Test Item Value Reference Range Interpretation Comments ALT (test code = ALT) 53 See_Comment [Auto mated message] The system which ge nerated this result transmit nallely reference range : <=65. The reference range was not used to interpr et this result as dennys l/abnormal. [facility] [employer] [id number] 01:58:00 Test Item Value Reference Range Interpretation Comments AST (test code = AST) 60 See_Comment [Auto mated message] The system which ge nerated this result transmit nallely reference range : <=37. The reference range was not used to interpr et this result as dennys l/abnormal. [facility] [employer] [id number] 01:58:00 Test Item Value Reference Range Interpretation Comments AGAP (test code = AGAP) 17.0 10.0-20.0 [facility] [employer] [id number] 01:58:00 Test Item Value Reference Range Interpretation Comments B/C Ratio (test code = B/C Ratio) 25 1 6-25 [facility] [employer] [id number] 01:58:00 Test Item Value Reference Range Interpretation Comments eGFR (test code = eGFR) 60 [facility] [employer] [id number] 01:58:00 Test Item Value Reference Range Interpretation Comments Total Protein (test code = Total 8.8 6.4-8.4 Protein) [facility] [employer] [id number] 01:58:00 Test Item Value Reference Range Interpretation Comments Alk Phos (test code = Alk Phos) 52 39-136 [facility] [employer] [id number] 01:58:00 Test Item Value Reference Range Interpretation Comments Bili Total (test code = Bili Total) 1.6 0.2-1.3 [facility] [employer] [id number] 01:58:00 Test Item Value Reference Range Interpretation Comments Globulin (test code = Globulin) 3.7 2.7-4.2 [facility] [employer] [id number] 01:58:00 Test Item Value Reference Range Interpretation Comments A/G Ratio (test code = A/G Ratio) 1.4 1 0.7-1.6 [facility]jegcvVSFYEZNEUWHFJ0241-20-97 01:58:00 Test Item Value Reference Range Interpretation Comments S Preg (test code = S Negative *NA*(10/12/20 Preg) 7:58 PM) [facility] HospitalHqmnkugMQUOIFMLTL4588-24-82 01:58:00 Test Item Value Reference Range Interpretation Comments WBC (test code = WBC) 23.4 3.7-10.4 [place] 110481-01-13 01:58:00 Test Item Value Reference Range Interpretation Comments RBC (test code = RBC) 4.79 4.20-5.40 [facility] HospitalUztcbmoQZSLYXIMKV8302-37-62 01:58:00 Test Item Value Reference Range Interpretation Comments Hgb (test code = Hgb) 15.4 12.0-16.0 [facility] HospitalRniiwhnYGTGZBYTPY9931-92-90 01:58:00 Test Item Value Reference Range Interpretation Comments Hct (test code = Hct) 46.2 36.0-48.0 [facility] HospitalPxeclquTWIFAIBRHC1161-77-29 01:58:00 Test Item Value Reference Range Interpretation Comments MCV (test code = MCV) 96.5 80.0-98.0 [facility] HospitalHxpbfpvTAGXHOIAIZ8313-52-54 01:58:00 Test Item Value Reference Range Interpretation Comments MCH (test code = MCH) 32.2 pg 27.0-31.0 [facility] HospitalUtyjrrsKJCPSQKZPE6730-22-90 01:58:00 Test Item Value Reference Range Interpretation Comments MCHC (test code = MCHC) 33.4 32.0-36.0 [facility] HospitalArjtadwAYDZDXHVLI5645-97-24 01:58:00 Test Item Value Reference Range Interpretation Comments RDW (test code = RDW) 13.0 11.5-14.5 [facility] HospitalXvgamgtGOBIORNFKU9413-82-03 01:58:00 Test Item Value Reference Range Interpretation Comments Platelet (test code = Platelet) 315 133-450 [facility] HospitalWcdvhksMVEMAPLPSQ0619-97-49 01:58:00 Test Item Value Reference Range Interpretation Comments MPV (test code = MPV) 8.7 7.4-10.4 [facility] HospitalPnjblhaQMSXZCUKBX6704-62-23 01:58:00 Test Item Value Reference Range Interpretation Comments Segs (test code = Segs) 80.3 45.0-75.0 [facility] HospitalTzqbddkBRHFGKOKWJ5607-66-97 01:58:00 Test Item Value Reference Range Interpretation Comments Lymphocytes (test code = Lymphocytes) 8.8 20.0-40.0 [facility] HospitalMwymzcyMFRBJXTZFP2949-62-09 01:58:00 Test Item Value Reference Range Interpretation Comments Monocytes (test code = Monocytes) 10.0 2.0-12.0 [facility] HospitalRleygspMFSMZCEHKH2118-71-41 01:58:00 Test Item Value Reference Range Interpretation Comments Eosinophils (test code = 0.2 See_Comment [A utomated message] The Eosinophils) system which ge nerated this result tra nsmitted reference range : <=4.0. The reference r jericho was not used to int erpret this result as normal/abnormal . [facility] HospitalLjivjbyXFLWHHDMEV8483-68-85 01:58:00 Test Item Value Reference Range Interpretation Comments Basophils (test code = 0.7 See_Comment [Aut omated message] The Basophils) system which ge nerated this result tra nsmitted reference range : <=1.0. The reference r jericho was not used to int erpret this result as normal/abnormal . [facility] HospitalMjrrsqfZIUSMTWGWO2687-35-04 01:58:00 Test Item Value Reference Range Interpretation Comments Neutrophils # (test code = Neutrophils 18.8 1.5-8.1 #) [facility] HospitalAnrcrtiFMLEINEXJB8151-70-99 01:58:00 Test Item Value Reference Range Interpretation Comments Lymphocytes # (test code = Lymphocytes 2.0 1.0-5.5 #) [facility] HospitalDygqofeGKCHILMYAC3583-51-70 01:58:00 Test Item Value Reference Range Interpretation Comments Monocytes # (test code 2.3 See_Comment [Aut omated message] The = Monocytes #) system which generated this result tra nsmitted reference range : <=0.8. The reference r jreicho was not used to int erpret this result as normal/abnormal . [facility] HospitalPtsdnkdFTFQLCZAZC2534-44-66 01:58:00 Test Item Value Reference Range Interpretation Comments Basophils # (test code 0.2 See_Comment [Aut omated message] The = Basophils #) system which generated this result tra nsmitted reference range : <=0.2. The reference r jericho was not used to int erpret this result as normal/abnormal . [facility]MzdpydlJWTGKCSUDA6200-67-75 01:58:00 Test Item Value Reference Range Interpretation Comments Acetaminoph Lvl (test code (10/12/20 7:58 PM) 10-20 = Acetaminoph Lvl) [facility]GnhjxtaFRUXVSCEIN4278-49-79 01:58:00 Test Item Value Reference Range Interpretation Comments Ethanol Lvl (test code = Ethanol Lvl) no gt [facility]vineYmplcesYDFURDVGDR5040-71-81 01:58:00 Test Item Value Reference Range Interpretation Comments Etoh (%) (test code = Etoh (%)) no gt [facility] BozutcyZXZGNADSLO1346-14-47 01:58:00 Test Item Value Reference Range Interpretation Comments Salicylate Lvl (test 2.7 See_Comment [Autom ated message] The code = Salicylate Lvl) syste m which generated this result tra nsmitted reference range : <=30.0. The reference r jericho was not used to int erpret this result as normal/abnormal . [facility] gon[facility] [id number] 15:09:00 Test Item Value Reference Range Interpretation Comments Neisseria gonorrhoeae DNA probe Negative Negative (test code = 36722-4) [facility] [id number] 15:09:00 Test Item Value Reference Range Interpretation Comments chlamydia DNA probe (test code = Negative Negative 50560-3) [facility] (SGPT), [id number] 10:58:00 Test Item Value Reference Range Interpretation Comments alanine aminotransferase (SGPT), serum 89 1/L 0-32 H (test code = 1742-6) [facility] Hospitalaspartate aminotransferase (SGOT), [id number] 10:58:00 Test Item Value Reference Range Interpretation Comments aspartate aminotransferase (SGOT), 58 1/L 0-40 H serum (test code = 1920-8) [facility] C virus genotype, PCR (Polymerase Chain Reaction)2020-08-16 10:58:00 Test Item Value Reference Range Interpretation Comments Hepatitis C virus genotype, PCR 1a (Polymerase Chain Reaction) (test code = 33834) [facility] C virus (HCV) RNA, PCR, hwysnlptoouw9939-34-57 10:58:00 Test Item Value Reference Range Interpretation Comments Hepatitis C virus (HCV) RNA, 2777302 [iU]/mL PCR, quantitative (test code = 96962) [facility] HCG, urine, jmfxjuvmvdpoephe9827-38-87 09:31:12 Test Item Value Reference Range Interpretation Comments beta HCG, urine, semiquantitative negative (test code = 2106-3) [facility] HospitalNeisseria gonorrhoeae DNA [id number] 10:32:00 Test Item Value Reference Range Interpretation Comments Neisseria gonorrhoeae DNA probe Negative Negative (test code = 58229-0) [facility] Hospitalchlamydia DNA [id number] 10:32:00 Test Item Value Reference Range Interpretation Comments chlamydia DNA probe (test code = Positive Negative A 73303-6) [facility] Hospitalred blood cell distribution [id number] 10:24:00 Test Item Value Reference Range Interpretation Comments red blood cell distribution width 13.8 % 11.7-15.4 (test code = 788-0) [facility] corpuscular hemoglobin concentration, [id number] 10:24:00 Test Item Value Reference Range Interpretation Comments mean corpuscular hemoglobin 34.0 G/DL 31.5-35.7 concentration, RBC (test code = 786-4) [facility] corpuscular hemoglobin, [id number] 10:24:00 Test Item Value Reference Range Interpretation Comments mean corpuscular hemoglobin, RBC 31.0 pg 26.6-33.0 (test code = 785-6) [facility] corpuscular volume, [id number] 10:24:00 Test Item Value Reference Range Interpretation Comments mean corpuscular volume, RBC (test code 91 fL 79-97 = 787-2) [facility] Hospitalhematocrit, kaihe6059-42-44 10:24:00 Test Item Value Reference Range Interpretation Comments hematocrit, blood (test code = 4544-3) 38.2 % 34.0-46.6 [facility] Hospitalhemoglobin, [id number] 10:24:00 Test Item Value Reference Range Interpretation Comments hemoglobin, blood (test code = 13.0 g/dL 11.1-15.9 718-7) [facility] Hospitalerythrocyte (RBC) [id number] 10:24:00 Test Item Value Reference Range Interpretation Comments erythrocyte (RBC) count (test 4.19 X10E6/UL 3.77-5.28 code = 789-8) [facility] Hospitalleukocyte count, [id number] 10:24:00 Test Item Value Reference Range Interpretation Comments leukocyte count, blood (test 9.2 X10E3/UL 3.4-10.8 code = 6690-2) [facility] Hospitalhepatitis B surface aveltly0204-00-69 10:24:00 Test Item Value Reference Range Interpretation Comments hepatitis B surface antigen (test Negative Negative code = 79) [facility] HospitalHIV-CMIA (Chemiluminescent Microparticle Immuno Assay) 2020-06-30 10:24:00 Test Item Value Reference Range Interpretation Comments HIV-CMIA (Chemiluminescent Non Reactive Non Reactive Microparticle Immuno Assay) (test code = 068751) [facility] Hospitalthyroid stimulating hormone, [id number] 10:24:00 Test Item Value Reference Range Interpretation Comments thyroid stimulating hormone, 0.572 u[IU]/mL 0.450-4.500 serum (test code = 3016-3) [facility] Hospitalhepatitis C antibody, lwlds6825-88-70 10:24:00 Test Item Value Reference Range Interpretation Comments hepatitis C antibody, serum (test code >11.0 0.0-0.9 H = 5199-5) [facility] Hospitalrapid plasma reagin antibody, sjroh6040-66-87 10:24:00 Test Item Value Reference Range Interpretation Comments rapid plasma reagin antibody, Non Reactive Non Reactive serum (test code = 5291-0) [facility] Hospitalalanine aminotransferase (SGPT), [id number] 10:24:00 Test Item Value Reference Range Interpretation Comments alanine aminotransferase (SGPT), serum 52 1/L 0-32 H (test code = 1742-6) [facility] Hospitalaspartate aminotransferase (SGOT), [id number] 10:24:00 Test Item Value Reference Range Interpretation Comments aspartate aminotransferase (SGOT), 38 1/L 0-40 serum (test code = 1920-8) [facility] Hospitalalkaline phosphatase, [id number] 10:24:00 Test Item Value Reference Range Interpretation Comments alkaline phosphatase, serum (test code 54 1/L 39-117 = 1783-0) [facility] serum, [id number] 10:24:00 Test Item Value Reference Range Interpretation Comments bilirubin, serum, total (test code 0.3 mg/dL 0.0-1.2 = 1975-2) [facility] Healthalbumin/globulin ratio, [id number] 10:24:00 Test Item Value Reference Range Interpretation Comments albumin/globulin ratio, 2.2 (unknown unit) 1.2-2.2 serum (test code = 1759-0) [facility] Healthglobulin, [id number] 10:24:00 Test Item Value Reference Range Interpretation Comments globulin, serum (test code 2.1 (unknown unit) 1.5-4.5 = 2336-6) [facility] Healthalbumin, [id number] 10:24:00 Test Item Value Reference Range Interpretation Comments albumin, serum (test code = 1751-7) 4.6 g/dL 3.9-5.0 [facility] total, [id number] 10:24:00 Test Item Value Reference Range Interpretation Comments protein, total, serum (test code = 6.7 g/dL 6.0-8.5 2885-2) [facility]calcium, [id number] 10:24:00 Test Item Value Reference Range Interpretation Comments calcium, serum (test code = 1999-8) 9.3 mg/dL 8.7-10.2 [facility]carbon dioxide, venous [id number] 10:24:00 Test Item Value Reference Range Interpretation Comments carbon dioxide, venous blood (test 22 mmol/L code = 2026-1) [facility] Healthchloride, [id number] 10:24:00 Test Item Value Reference Range Interpretation Comments chloride, serum (test code = 103 mmol/L 96-106 5-0) [facility]potassium, [id number] 10:24:00 Test Item Value Reference Range Interpretation Comments potassium, serum (test code = 4.4 mmol/L 3.5-5.2 2823-3) [facility] Hospitalsodium, [id number] 10:24:00 Test Item Value Reference Range Interpretation Comments sodium, serum (test code = 2951-2) 141 mmol/L 134-144 [facility]/creatinine ratio, [id number] 10:24:00 Test Item Value Reference Range Interpretation Comments urea nitrogen/creatinine 21 (unknown unit) 9-23 ratio, serum (test code = 3097-3) [facility] HealtheGFR if [id number] 10:24:00 Test Item Value Reference Range Interpretation Comments eGFR if 144 mL/min/{1.73 m2} >59 (test code = 18355-2) [facility] HospitalEstimated Glomerular Filtration Rate (calc)2020-06-30 10:24:00 Test Item Value Reference Range Interpretation Comments Estimated Glomerular 125 mL/min/{1.73 m2} >59 Filtration Rate (calc) (test code = 25933-5) [facility] Hospitalcreatinine, [id number] 10:24:00 Test Item Value Reference Range Interpretation Comments creatinine, serum (test code = 0.61 mg/dL 0.57-1.00 2160-0) [facility] nitrogen, [id number] 10:24:00 Test Item Value Reference Range Interpretation Comments urea nitrogen, blood (test code = 13 mg/dL 6-20 3094-0) [facility] glucose, [id number] 10:24:00 Test Item Value Reference Range Interpretation Comments blood glucose, random (test code = 85 mg/dL 65-99 2339-0) [facility] Hospitalimmature granulocytes, percentage of total cells, blood 2020-06-30 10:24:00 Test Item Value Reference Range Interpretation Comments immature granulocytes, percentage of 0 % total cells, blood (test code = 76797-8) [facility] Hospitalbasophil count, [id number] 10:24:00 Test Item Value Reference Range Interpretation Comments basophil count, absolute (test 0.1 x10E3/uL 0.0-0.2 code = 61952-0) [facility] HospitalEosinophil Absolute [id number] 10:24:00 Test Item Value Reference Range Interpretation Comments Eosinophil Absolute Count (test 0.2 X10E3/UL 0.0-0.4 code = 37467-1) [facility] Hospitalmonocyte count, blood, [id number] 10:24:00 Test Item Value Reference Range Interpretation Comments monocyte count, blood, automated 0.6 X10E3/UL 0.1-0.9 (test code = 742-7) [facility] Hospitallymphocyte count, blood, xzwstnmga9617-95-12 10:24:00 Test Item Value Reference Range Interpretation Comments lymphocyte count, blood, 2.2 X10E3/UL 0.7-3.1 automated (test code = 731-0) [facility] HospitalAbsolute Xsjwuctpkyf8709-95-30 10:24:00 Test Item Value Reference Range Interpretation Comments Absolute Neutrophils (test code 6.1 X10E3/UL 1.4-7.0 = 64323-0) [facility] Hospitalbasophils as percent of blood tyoibwthrh8287-98-23 10:24:00 Test Item Value Reference Range Interpretation Comments basophils as percent of blood 1 % leukocytes (test code = 707-0) [facility] Hospitaleosinophils as percent of blood awnsbhendj4344-16-72 10:24:00 Test Item Value Reference Range Interpretation Comments eosinophils as percent of blood 3 % leukocytes (test code = 713-8) [facility] Healthmonocytes as percent of blood gzttwddrlg1661-97-66 10:24:00 Test Item Value Reference Range Interpretation Comments monocytes as percent of blood 6 % leukocytes (test code = 5905-5) [facility] Hospitallymphocytes as percent of blood xpbevzyzpy1333-22-79 10:24:00 Test Item Value Reference Range Interpretation Comments lymphocytes as percent of blood 24 % leukocytes (test code = 736-9) [facility] Hospitalneutrophils as percent of blood mbjhnfrrou1900-10-58 10:24:00 Test Item Value Reference Range Interpretation Comments neutrophils as percent of blood 66 % leukocytes (test code = 770-8) [facility] Hospitalplatelet [id number] 10:24:00 Test Item Value Reference Range Interpretation Comments platelet count (test code = 327 X10E3/UL 150-450 777-3) [facility] HospitalUrine Rnzqcxf1711-50-55 06:41:53 C Urine Added by GL_SJM_UA_CUL_INDNo growth at 24 hours. No growth at 48 hours.Red Blood Cells Aauhwkddwkeg3516-89-39 13:39:56 Test Item Value Reference Range Interpretation Comments # of Units (test 2 N code = # of Units) RBC Trn Reason Other (please N (test code = RBC specify) Trn Reason) RBC Product RBC Ready 10/16/2019 13:39 Ready (test code Dexter belled RANDY Alyson = RBC Product / 2 RBC ready Ready) ABORh Ijudwn1587-01-41 13:35:34 Test Item Value Reference Range Interpretation Comments Methodology (test Test-Tube(TT) code = Methodology) Anti-A (test code = 4+ Anti-A) Anti-B (test code = 0 Anti-B) Anti-AB (test code = NT Anti-AB) Anti-D (test code = 4+ 0 13:35 Anti-D) Dany wt ih CBC 14-20-016-0 0572, 10-16-2019 @1240 ABORh Retype (test A POS code = ABORh Retype) Complete Blood Count without [id number] 13:09:38 Test Item Value Reference Range Interpretation Comments WBC (test code = WBC) 7.5 x10 4.4-10.5 RBC (test code = RBC) 2.98 x10 3.75-5.20 L Hgb (test code = Hgb) 8.8 g/dL 12.2-14.8 L Hct (test code = Hct) 27.4 % 36.5-44.4 L MCV (test code = MCV) 91.90 fL 80.00-100.00 MCH (test code = MCH) 29.5 pg 27.0-32.5 MCHC (test code = MCHC) 32.10 g/dL 32.00-37.50 RDW CV (test code = RDW CV) 13.5 % 11.5-14.5 Platelets (test code = Platelets) 243.0 x10 140.0-440.0 MPV (test code = MPV) 10.9 fL N nRBC (test code = nRBC) 0 N NRBC Abs (test code = NRBC Abs) 0.03 x10 N IPF (test code = IPF) 0 % N HIV 1/2 AB-P24 Ag [id number] 12:52:59 Test Item Value Reference Range Interpretation Comments HIV 1/2 Ab (test code = HIV Non Reactive Non Reactive 1/2 Ab) P24 Ag (test code = P24 Ag) Non Reactive Non Reactive Neg Control (test code = Neg Non-Reactive Control) Pos Control (test code = Pos Reactive Control) Lot # (test code = Lot #) [id number] N Expiration Dt (test code = 12-25-2020 N Expiration Dt) RPR Xnxmxnsuujt6483-93-09 20:29:03 Test Item Value Reference Range Interpretation Comments RPR Qual (test code = RPR Qual) Non-Reactive Non-Reactive Reactive Control (test code = Reactive Reactive Control) Weak Reactive Control (test Weak Reactive code = Weak Reactive Control) Non-Reactive Control (test code Non-Reactive = Non-Reactive Control) Lot # (test code = Lot #) [id number] N Expiration Dt (test code = 10.31.20 N Expiration Dt) Rubella [id number] 19:40:04 Test Item Value Reference Range Interpretation Comments Rubella Scr (test code = Rubella Immune Immune Scr) Neg Control (test code = Neg Negative Control) Weak Pos Control (test code = Weak Weak Pos Pos Control) Pos Control (test code = Pos Positive Control) Lot # (test code = Lot #) [id number] N Expiration Dt (test code = 6. N Expiration Dt) ABORh [id number] 18:06:14 Test Item Value Reference Range Interpretation Comments Methodology (test code = Test-Tube(TT) Methodology) Anti-A (test code = Anti-A) 4+ Anti-B (test code = Anti-B) 0 Anti-AB (test code = Anti-AB) NT Anti-D (test code = Anti-D) 4+ ABORh Retype (test code = ABORh A POS Retype) Lactate [id number] 17:29:58See CommentsSpecimen hemolyzed. LDH 269 Uric [id number] 17:29:58 Test Item Value Reference Range Interpretation Comments Uric Acid (test code = Uric Acid) 5.1 mg/dL 3.4-5.7 Comprehensive Metabolic [id number] 17:29:57 Test Item Value Reference Range Interpretation Comments Sodium Level (test 135.0 mmol/L 135.0-145.0 code = Sodium Level) Potassium Level 4.5 mmol/L 3.5-5.1 (test code = Potassium Level) Chloride Level (test 104 mmol/L 98-105 code = Chloride Level) CO2 (test code = 20 mmol/L 22-29 L CO2) Anion Gap (test code 11 mmol/L 7-16 = Anion Gap) BUN (test code = 11.10 mg/dL 6.00-20.00 BUN) Creatinine Level 0.50 mg/dL 0.50-0.90 (test code = Creatinine Level) BUN/Creat Ratio 22 N (test code = BUN/Creat Ratio) Glucose Level (test 62 mg/dL 70-115 L code = Glucose Level) Calcium Level (test 8.4 mg/dL 8.3-10.5 code = Calcium Level) Alk Phos (test code 181 U/L 35-104 H = Alk Phos) Bilirubin Total 0.2 mg/dL 0.1-0.9 (test code = Bilirubin Total) Albumin Level (test 2.7 g/dL 3.5-5.2 L code = Albumin Level) Protein Total (test 5.2 g/dL 6.4-8.3 L code = Protein Total) ALT (test code = 6 U/L 1-33 ALT) AST (test code = See Comments U/L 1-32 N Specime n AST) hemolyzed. AST 17 Globulin (test code 2.5 g/dL 2.9-3.1 L = Globulin) A/G Ratio (test code 1.1 ratio N = A/G Ratio) Comprehensive Metabolic [id number] 17:29:57 Test Item Value Reference Range Interpretation Comments Sodium Level (test 135.0 mmol/L 135.0-145.0 code = Sodium Level) Potassium Level 4.5 mmol/L 3.5-5.1 (test code = Potassium Level) Chloride Level 104 mmol/L 98-105 (test code = Chloride Level) CO2 (test code = 20 mmol/L 22-29 L CO2) Anion Gap (test 11 mmol/L 7-16 code = Anion Gap) BUN (test code = 11.10 mg/dL 6.00-20.00 BUN) Creatinine Level 0.50 mg/dL 0.50-0.90 (test code = Creatinine Level) BUN/Creat Ratio 22 N (test code = BUN/Creat Ratio) Glucose Level (test 62 mg/dL 70-115 L code = Glucose Level) Calcium Level (test 8.4 mg/dL 8.3-10.5 code = Calcium Level) Alk Phos (test code 181 U/L 35-104 H = Alk Phos) Bilirubin Total 0.2 mg/dL 0.1-0.9 (test code = Bilirubin Total) Albumin Level (test 2.7 g/dL 3.5-5.2 L code = Albumin Level) Protein Total (test 5.2 g/dL 6.4-8.3 L code = Protein Total) ALT (test code = 6 U/L 1-33 ALT) AST (test code = See Comments U/L 1-32 N Specime n hemolyzed. AST) AST 17 Globulin (test code 2.5 g/dL 2.9-3.1 L = Globulin) A/G Ratio (test 1.1 ratio N code = A/G Ratio) eGFR AA (test code >60 mL/min/1.73 N eGFR ( estimated = eGFR AA) m2 Glomerular Filtration Rate ) is an estimated va lue, calculated from the patient's serum creatinine usin g the MDRD equati on. It is NOT the patient's actua l GFR. The eGFR provides a more clinically usef ul measure of kidn ey disease than se rum creatinine alone.This calculation florence es sex and race in to account, if the information is provided. If th e race is not provided, and t he patient is -Yajaira n, multiply by 1.2 12. If sex is not provided, and t he patient is fema le, multiply by 0.7 42. Results for patients <18 ye ars of age have not been validated by the MDRD study and should be interpreted wit h caution. eGFR Result Interpretation: eGFR > or = 60 is in the Normal RangeeGF R < 60 may mean kid perla diseaseeGFR < 1 5 may mean kidney failure Rang es recommended by the National Kidney Foundation, [email or web address].ni h.go v Comprehensive Metabolic [id number] 17:29:57 Test Item Value Reference Range Interpretation Comments Sodium Level (test 135.0 mmol/L 135.0-145.0 code = Sodium Level) Potassium Level 4.5 mmol/L 3.5-5.1 (test code = Potassium Level) Chloride Level 104 mmol/L 98-105 (test code = Chloride Level) CO2 (test code = 20 mmol/L 22-29 L CO2) Anion Gap (test 11 mmol/L 7-16 code = Anion Gap) BUN (test code = 11.10 mg/dL 6.00-20.00 BUN) Creatinine Level 0.50 mg/dL 0.50-0.90 (test code = Creatinine Level) BUN/Creat Ratio 22 N (test code = BUN/Creat Ratio) Glucose Level (test 62 mg/dL 70-115 L code = Glucose Level) Calcium Level (test 8.4 mg/dL 8.3-10.5 code = Calcium Level) Alk Phos (test code 181 U/L 35-104 H = Alk Phos) Bilirubin Total 0.2 mg/dL 0.1-0.9 (test code = Bilirubin Total) Albumin Level (test 2.7 g/dL 3.5-5.2 L code = Albumin Level) Protein Total (test 5.2 g/dL 6.4-8.3 L code = Protein Total) ALT (test code = 6 U/L 1-33 ALT) AST (test code = See Comments U/L 1-32 N Specime n hemolyzed. AST) AST 17 Globulin (test code 2.5 g/dL 2.9-3.1 L = Globulin) A/G Ratio (test 1.1 ratio N code = A/G Ratio) eGFR AA (test code >60 mL/min/1.73 N eGFR ( estimated = eGFR AA) m2 Glomerular Filtration Rate ) is an estimated va lue, calculated from the patient's serum creatinine usin g the MDRD equati on. It is NOT the patient's actua l GFR. The eGFR provides a more clinically usef ul measure of kidn ey disease than se rum creatinine alone.This calculation florence es sex and race in to account, if the information is provided. If th e race is not provided, and t he patient is -Yajaira n, multiply by 1.2 12. If sex is not provided, and t he patient is fema le, multiply by 0.7 42. Results for patients <18 ye ars of age have not been validated by the MDRD study and should be interpreted wit h caution. eGFR Result Interpretation: eGFR > or = 60 is in the Normal RangeeGF R < 60 may mean kid perla diseaseeGFR < 1 5 may mean kidney failure Rang es recommended by the National Kidney Foundation, http://nkdep.ni h.go v eGFR Non-AA (test >60.00 N eGFR (maría mated code = eGFR Non-AA) mL/min/1.73 m2 Glomer ular Filtration Rate ) is an estimated va lue, calculated from the patient's serum creatinine usin g the MDRD equati on. It is NOT the patient's actua l GFR. The eGFR provides a more clinically usef ul measure of kidn ey disease than se rum creatinine alone.This calculation florence es sex and race in to account, if the information is provided. If th e race is not provided, and t he patient is -Yajaira n, multiply by 1.2 12. If sex is not provided, and t he patient is fema le, multiply by 0.7 42. Results for patients <18 ye ars of age have not been validated by the MDRD study and should be interpreted wit h caution. eGFR Result Interpretation: eGFR > or = 60 is in the Normal RangeeGF R < 60 may mean kid perla diseaseeGFR < 1 5 may mean kidney failure Rang es recommended by the National Kidney Foundation, http://nkdep.ni h.go v Urinalysis [id number] 17:29:56 Test Item Value Reference Range Interpretation Comments UA WBC (test code = UA WBC) 20-29 0-5 A UA RBC (test code = UA RBC) 0-5 0-5 UA Bacteria (test code = UA Moderate A Bacteria) UA Squam Epithelial (test code = UA TNTC A Squam Epithelial) UA Gran Cast (test code = UA Gran 1-5 A Cast) 3C ABSC [id number] 17:22:53 Test Item Value Reference Range Interpretation Comments SC1 IS (test code = SC1 IS) NT SC2 IS (test code = SC2 IS) NT SC3 IS (test code = SC3 IS) NT SC1 37 (test code = SC1 37) 0 SC2 37 (test code = SC2 37) 0 SC3 37 (test code = SC3 37) 0 SC1 AHG (test code = SC1 AHG) 0 SC2 AHG (test code = SC2 AHG) 0 SC3 AHG (test code = SC3 AHG) 0 SC1 CC (test code = SC1 CC) 2+ SC2 CC (test code = SC2 CC) 2+ SC3 CC (test code = SC3 CC) 2+ Antibody Screen (3C) (test code Negative ABSC = Antibody Screen (3C)) Urine Drug [id number] 17:16:41 Test Item Value Reference Range Interpretation Comments Amphetamine Screen Ur Negative Negative (test code = Amphetamine Screen Ur) Barbiturate Screen Ur Negative Negative (test code = Barbiturate Screen Ur) Benzodiazepines Ur (test Negative Negative code = Benzodiazepines Ur) Cocaine Screen Ur (test Negative Negative code = Cocaine Screen Ur) U Methadone Scr (test POSITIVE Negative A code = U Methadone Scr) Opiate Screen Ur (test Negative Negative code = Opiate Screen Ur) U PCP Scrn (test code = Negative Negative U PCP Scrn) Cannabinoid Screen Ur Negative Negative (test code = Cannabinoid Screen Ur) U TCA (test code = U Negative Negative The res ults of all TCA) drug screen nicole ts are only preliminar y. Clinical consideration a nd professional ju dgment should be appli ed to any drug of abu se test result, particularly wh en preliminary pos itive results are obt ained. Please order a separate confir matory test if desired . Hepatitis B Surface [id number] 17:13:31 Test Item Value Reference Range Interpretation Comments Hep Bs Ag (test code = Hep Bs Ag) Nonreactive Non Reactive [id number] 17:01:45 Test Item Value Reference Range Interpretation Comments Previous History (test code = No Prev History Previous History) BBID (test code = BBID) [id number] Methodology (test code = Test-Tube(TT) Methodology) Anti-A (test code = Anti-A) 4+ Anti-B (test code = Anti-B) 0 Anti-D (test code = Anti-D) 4+ DCon (test code = DCon) NT A1 (test code = A1) 0 B cells (test code = B cells) 4+ ABORh (test code = ABORh) A POS Urinalysis with Culture, if [id number] 16:57:42 Test Item Value Reference Range Interpretation Comments UA Color (test code = KAY Yellow A UA Color) UA Appear (test code = CLEAR Clear UA Appear) UA pH (test code = UA 5 N pH) UA Spec Grav (test code 1.032 1.001-1.035 = UA Spec Grav) UA Glucose (test code = NEG Negative UA Glucose) UA Bili (test code = UA NEG Negative Bili) UA Ketones (test code = 5 mg/dL Negative UA Ketones) UA Blood (test code = NEG Negative UA Blood) UA Protein (test code = 500 mg/dL Negative A UA Protein) UA Urobilinogen (test 0.2 mg/dL N code = UA Urobilinogen) UA Nitrite (test code = NEG Negative UA Nitrite) UA Leuk Est (test code 25 cells/mcL Negative A = UA Leuk Est) UA Micro Ind? (test Indicated Not Indicated A Result created by code = UA Micro Ind?) rule GL_SJM_UA_MICRO _IN D Complete Blood Count with [id number] 16:56:27 Test Item Value Reference Range Interpretation Comments WBC (test code = WBC) 9.5 x10 4.4-10.5 RBC (test code = RBC) 3.15 x10 3.75-5.20 L Hgb (test code = Hgb) 9.3 g/dL 12.2-14.8 L Hct (test code = Hct) 28.6 % 36.5-44.4 L MCV (test code = MCV) 90.80 fL 80.00-100.00 MCHC (test code = 32.50 g/dL 32.00-37.50 MCHC) MCH (test code = MCH) 29.5 pg 27.0-32.5 RDW CV (test code = 13.4 % 11.5-14.5 RDW CV) Platelets (test code = 321.0 x10 140.0-440.0 Platelets) MPV (test code = MPV) 11.4 fL N Slide Review (test Auto Auto Result cr eated by code = Slide Review) GL_SJM_ SLIDE_REV_AUTO nRBC (test code = 0 N nRBC) NRBC Abs (test code = 0.04 x10 N NRBC Abs) IPF (test code = IPF) 0 % N Automated [id number] 16:56:27 Test Item Value Reference Range Interpretation Comments Neutro Auto (test code = Neutro 75.5 % 36.0-70.0 H Auto) Lymph Auto (test code = Lymph Auto) 13.9 % 12.0-44.0 [place] Auto (test code = [place] Auto) 7.3 % 0.0-11.0 Eos, Auto (test code = Eos, Auto) 1.0 % 0.0-7.0 Basophil Auto (test code = Basophil 0.4 % 0.0-2.0 Auto) Neutro Absolute (test code = Neutro 7.2 x10 1.6-7.4 Absolute) Lymph Absolute (test code = Lymph 1.32 x10 .50-4.60 Absolute) [place] Absolute (test code = [place] .69 x10 .00-1.20 Absolute) Eos Absolute (test code = Eos 0.09 x10 0.00-0.74 Absolute) Baso Absolute (test code = Baso 0.04 x10 0.00-0.21 Absolute) IG [id number] 16:56:27 Test Item Value Reference Range Interpretation Comments IG (test code = IG) 1.9 % 0.0-5.0 IG Abs (test code = IG Abs) 0 x10 N POC [id number] 16:00:14 Test Item Value Reference Range Interpretation Comments Glucose POC (test 79 mg/dL 70-115 If you con ply splicer your code = Glucose POC) patient critically ill, the Michelle-Accu Check Infrom II meter should not be used for Glucose determination. Draw a venous Glucose and send to the main Lab for analysis. [id number] 13:32:00 Test Item Value Reference Range Interpretation Comments HIV. (test code = Negative *NA*(04/11/19 HIV.) 8:32 AM) [id number] 21:50:00 Test Item Value Reference Range Interpretation Comments U Cannab Scr (test Positive *ABN*(04/10/19 code = U Cannab Scr) 4:50 PM) [facility] [id number] 21:50:00 Test Item Value Reference Range Interpretation Comments U Phencyclidine Scr (test Negative code = U Phencyclidine *NA*(04/10/19 4:50 Scr) PM) [facility] [id number] 21:50:00 Test Item Value Reference Range Interpretation Comments U Opiate Scr (test Positive *ABN*(04/10/19 code = U Opiate Scr) 4:50 PM) [facility] [id number] 21:50:00 Test Item Value Reference Range Interpretation Comments U Gifty Scr (test code Negative *NA*(04/10/19 = U Gifty Scr) 4:50 PM) [facility] [id number] 21:50:00 Test Item Value Reference Range Interpretation Comments U Amph Scr (test code Positive *ABN*(04/10/19 = U Amph Scr) 4:50 PM) [facility] [id number] 21:50:00 Test Item Value Reference Range Interpretation Comments U Benzodiaz Scr (test Positive *ABN*(04/10/19 code = U Benzodiaz Scr) 4:50 PM) [facility] [id number] 21:50:00 Test Item Value Reference Range Interpretation Comments U Cocaine Scr (test Negative *NA*(04/10/19 code = U Cocaine Scr) 4:50 PM) [facility] [id number] 21:50:00 Test Item Value Reference Range Interpretation Comments UDS Note (test code = See Note (04/10/19 4:50 UDS Note) PM) [facility] [id number] 21:50:00 Test Item Value Reference Range Interpretation Comments UA Urobilinogen (test code = UA <=1.0 mg/dL 0.1-1.0 Urobilinogen) [facility] [id number] 21:50:00 Test Item Value Reference Range Interpretation Comments UA Color (test code = UA Color) [facility] [id number] 21:50:00 Test Item Value Reference Range Interpretation Comments UA Mucus (test code = UA Mucus) Many /LPF [facility] [id number] 21:50:00 Test Item Value Reference Range Interpretation Comments UA Bacteria (test code = UA Few /HPF Bacteria) [facility] [id number] 21:50:00 Test Item Value Reference Range Interpretation Comments UA Hyal Cast (test 10 See_Comment [Automat ed message] The code = UA Hyal Cast) system which generated this result transmit nallely reference range : <=2. The reference range was not used to interpr et this result as dennys l/abnormal. [facility] AND [id number] 21:50:00 Test Item Value Reference Range Interpretation Comments UA RBC (test code = 7 See_Comment [Automa nallely message] The UA RBC) system which ge nerated this result transmit nallely reference range : <=2. The reference range was not used to interpr et this result as dennys l/abnormal. [facility] AND [id number] 21:50:00 Test Item Value Reference Range Interpretation Comments UA Ketones (test code = UA Ketones) 20 mg/dL [facility] AND [id number] 21:50:00 Test Item Value Reference Range Interpretation Comments UA Protein (test code = UA >=300 mg/dL Protein) [facility] AND [id number] 21:50:00 Test Item Value Reference Range Interpretation Comments UA Glucose (test code = UA Negative mg/dL Glucose) [facility] AND [id number] 21:50:00 Test Item Value Reference Range Interpretation Comments UA Nitrite (test code Negative (04/10/19 4:50 = UA Nitrite) PM) [facility] AND [id number] 21:50:00 Test Item Value Reference Range Interpretation Comments UA Bili (test code = Negative *NA*(04/10/19 UA Bili) 4:50 PM) [facility] AND [id number] 21:50:00 Test Item Value Reference Range Interpretation Comments UA Blood (test code = Negative (04/10/19 4:50 UA Blood) PM) [facility] AND [id number] 21:50:00 Test Item Value Reference Range Interpretation Comments UA Spec Grav (test code = UA Spec 1.027 1 Grav) [facility] AND [id number] 21:50:00 Test Item Value Reference Range Interpretation Comments UA Turbidity (test code Marked *ABN*(04/10/19 = UA Turbidity) 4:50 PM) [facility] AND [id number] 21:50:00 Test Item Value Reference Range Interpretation Comments UA pH (test code = UA pH) 5.0 1 5.0-8.0 [facility] AND [id number] 21:50:00 Test Item Value Reference Range Interpretation Comments UA WBC (test code = 6 See_Comment [Automa nallely message] The UA WBC) system which ge nerated this result transmit nallely reference range : <=5. The reference range was not used to interpr et this result as dennys l/abnormal. [facility] [id number] 21:50:00 Test Item Value Reference Range Interpretation Comments UA Leuk Est (test Negative (04/10/19 4:50 code = UA Leuk Est) PM) [facility] [id number] 21:50:00 Test Item Value Reference Range Interpretation Comments UA Sq Epi (test code = UA Sq Epi) Few /LPF [facility] [id number] 21:14:00 Test Item Value Reference Range Interpretation Comments Total CK (test code = Total CK) 187 12-191 [facility]logoline[facility] [id number] 21:14:00 Test Item Value Reference Range Interpretation Comments Globulin (test code = Globulin) 3.3 2.7-4.2 [facility] [id number] 21:14:00 Test Item Value Reference Range Interpretation Comments A/G Ratio (test code = A/G Ratio) 1.2 1 0.7-1.6 [facility] [id number] 21:14:00 Test Item Value Reference Range Interpretation Comments B/C Ratio (test code = B/C Ratio) 25 1 6-25 [facility] [id number] 21:14:00 Test Item Value Reference Range Interpretation Comments AGAP (test code = AGAP) 13.7 10.0-20.0 [facility] [id number] 21:14:00 Test Item Value Reference Range Interpretation Comments BUN (test code = BUN) 14 7-22 [facility] [id number] 21:14:00 Test Item Value Reference Range Interpretation Comments Glucose Lvl (test code = Glucose Lvl) 72 70-99 [facility] [id number] 21:14:00 Test Item Value Reference Range Interpretation Comments Sodium Lvl (test code = Sodium Lvl) 142 135-145 [facility] [id number] 21:14:00 Test Item Value Reference Range Interpretation Comments Potassium Lvl (test code = Potassium 3.7 3.5-5.1 Lvl) [facility]2019-07-11 21:14:00 Test Item Value Reference Range Interpretation Comments Chloride Lvl (test code = Chloride Lvl) 108 95-109 [facility]2019-07-11 21:14:00 Test Item Value Reference Range Interpretation Comments Total Protein (test code = Total 7.4 6.4-8.4 Protein) [facility]2019-07-11 21:14:00 Test Item Value Reference Range Interpretation Comments Bili Total (test code = Bili Total) 0.6 0.2-1.3 [facility]2019-07-11 21:14:00 Test Item Value Reference Range Interpretation Comments Alk Phos (test code = Alk Phos) 42 39-136 [facility]2019-07-11 21:14:00 Test Item Value Reference Range Interpretation Comments AST (test code = AST) 19 See_Comment [Auto mated message] The system which ge nerated this result transmit nallely reference range : <=37. The reference range was not used to interpr et this result as dennys l/abnormal. [facility]2019-07-11 21:14:00 Test Item Value Reference Range Interpretation Comments eGFR (test code = eGFR) 131 [facility]2019-07-11 21:14:00 Test Item Value Reference Range Interpretation Comments Creatinine Lvl (test code = Creatinine 0.55 0.50-1.40 Lvl) [facility]2019-07-11 21:14:00 Test Item Value Reference Range Interpretation Comments ALT (test code = ALT) 15 See_Comment [Auto mated message] The system which ge nerated this result transmit nallely reference range : <=65. The reference range was not used to interpr et this result as dennys l/abnormal. [facility]2019-07-11 21:14:00 Test Item Value Reference Range Interpretation Comments Calcium Lvl (test code = Calcium Lvl) 9.0 8.5-10.5 [facility]2019-07-11 21:14:00 Test Item Value Reference Range Interpretation Comments CO2 (test code = CO2) 24 24-32 [facility]2019-07-11 21:14:00 Test Item Value Reference Range Interpretation Comments Albumin Lvl (test code = Albumin Lvl) 4.1 3.5-5.0 [facility] Cent[id number] 21:14:00 Test Item Value Reference Range Interpretation Comments hCG Tot (test code = hCG Tot) [id number] [facility] Ho[id number] 21:14:00 Test Item Value Reference Range Interpretation Comments MPV (test code = MPV) 7.8 7.4-10.4 [facility] HospitalLlgqjwkEOCVKKZRKG7674-94-27 21:14:00 Test Item Value Reference Range Interpretation Comments Platelet (test code = Platelet) 399 133-450 [facility] HospitalXmnabobTHASWCBCVD3320-90-14 21:14:00 Test Item Value Reference Range Interpretation Comments RDW (test code = RDW) 13.6 11.5-14.5 [facility] HospitalLdrngiqLWARMMUQEH0902-90-48 21:14:00 Test Item Value Reference Range Interpretation Comments MCHC (test code = MCHC) 33.8 32.0-36.0 [facility] HospitalSfjrkyeYHMUQHJMVV3215-90-16 21:14:00 Test Item Value Reference Range Interpretation Comments MCH (test code = MCH) 31.3 pg 27.0-31.0 [facility] HospitalCpxjdoaVXNKXKBAQH4726-97-65 21:14:00 Test Item Value Reference Range Interpretation Comments MCV (test code = MCV) 92.6 80.0-98.0 [facility] HospitalJbqjehbECPMTVTNNA3125-59-28 21:14:00 Test Item Value Reference Range Interpretation Comments WBC (test code = WBC) 14.2 3.7-10.4 [facility] HospitalKhaujdnPQSRAKDTIM5176-47-44 21:14:00 Test Item Value Reference Range Interpretation Comments RBC (test code = RBC) 3.79 4.20-5.40 [facility] HospitalPplzxxnDBGMFYSYRN2232-75-20 21:14:00 Test Item Value Reference Range Interpretation Comments Hct (test code = Hct) 35.1 36.0-48.0 [facility] HospitalJftorajNUEMFBKDFK7200-29-54 21:14:00 Test Item Value Reference Range Interpretation Comments Hgb (test code = Hgb) 11.9 12.0-16.0 [facility] HospitalCgtjdaeKYNFGRQKEF0946-85-48 21:14:00 Test Item Value Reference Range Interpretation Comments Eosinophils # (test code 0.1 See_Comment [A utomated message] The = Eosinophils #) system whic h generated this result tra nsmitted reference range : <=0.5. The reference r jericho was not used to int erpret this result as normal/abnormal . [facility] HospitalObvggigGAQQLPBXUW3406-10-15 21:14:00 Test Item Value Reference Range Interpretation Comments Monocytes # (test code 1.3 See_Comment [Aut omated message] The = Monocytes #) system which generated this result tra nsmitted reference range : <=0.8. The reference r jericho was not used to int erpret this result as normal/abnormal . [facility] HospitalMlbkjowNEVWBLILQD3138-72-24 21:14:00 Test Item Value Reference Range Interpretation Comments Lymphocytes # (test code = Lymphocytes 2.7 1.0-5.5 #) [facility] HospitalTzaafhvEEQSHMURGQ5132-72-29 21:14:00 Test Item Value Reference Range Interpretation Comments Neutrophils # (test code = Neutrophils 10.1 1.5-8.1 #) [facility] HospitalHxjxvskUNAQMPEFDP7146-40-48 21:14:00 Test Item Value Reference Range Interpretation Comments Eosinophils (test code = 0.9 See_Comment [A utomated message] The Eosinophils) system which ge nerated this result tra nsmitted reference range : <=4.0. The reference r jericho was not used to int erpret this result as normal/abnormal . [facility] HospitalSisgorgFWWNQQBGCJ7254-26-17 21:14:00 Test Item Value Reference Range Interpretation Comments Basophils (test code = 0.6 See_Comment [Aut omated message] The Basophils) system which ge nerated this result tra nsmitted reference range : <=1.0. The reference r jericho was not used to int erpret this result as normal/abnormal . [facility] HospitalSgmuihyMYSZNOEDZT5452-12-42 21:14:00 Test Item Value Reference Range Interpretation Comments Basophils # (test code 0.1 See_Comment [Aut omated message] The = Basophils #) system which generated this result tra nsmitted reference range : <=0.2. The reference r jericho was not used to int erpret this result as normal/abnormal . [facility] HospitalFfmsbflWUGJQZQBSO6494-09-69 21:14:00 Test Item Value Reference Range Interpretation Comments Segs (test code = Segs) 70.9 45.0-75.0 [facility] HospitalYtqfgeqHHDCTBWPLL9108-11-33 21:14:00 Test Item Value Reference Range Interpretation Comments Lymphocytes (test code = Lymphocytes) 18.8 20.0-40.0 [facility] CenterVccvvbgETFCBQHFKX4629-78-96 21:14:00 Test Item Value Reference Range Interpretation Comments Monocytes (test code = Monocytes) 8.8 2.0-12.0 [facility]df[facility]HTAGLLJMBP2609-77-38 21:14:00 Test Item Value Reference Range Interpretation Comments Salicylate Lvl (test no gt See_Comment [Autom ated message] The code = Salicylate Lvl) syste m which generated this result tra nsmitted reference range : <=30.0. The reference r jericho was not used to int erpret this result as normal/abnormal . [place] [id number] 21:14:00 Test Item Value Reference Range Interpretation Comments Etoh (%) (test code = Etoh (%)) no gt [place] [id number] 21:14:00 Test Item Value Reference Range Interpretation Comments Ethanol Lvl (test code = Ethanol Lvl) no gt [place] [id number] 21:14:00 Test Item Value Reference Range Interpretation Comments Acetaminoph Lvl (test code (04/10/19 4:14 PM) 10-20 = Acetaminoph Lvl) [email or web address] [id number] 08:09:00 Test Item Value Reference Range Interpretation Comments eGFR (test code = eGFR) 143 [email or web address] [id number] 08:09:00 Test Item Value Reference Range Interpretation Comments Alk Phos (test code = Alk Phos) 40 39-136 [email or web address] [id number] 08:09:00 Test Item Value Reference Range Interpretation Comments AST (test code = AST) 18 See_Comment [Auto mated message] The system which ge nerated this result transmit nallely reference range : <=37. The reference range was not used to interpr et this result as dennys l/abnormal. [facility] [id number] 08:09:00 Test Item Value Reference Range Interpretation Comments Bili Total (test code = Bili Total) 0.2 0.2-1.3 [email or web address] [id number] 08:09:00 Test Item Value Reference Range Interpretation Comments ALT (test code = ALT) 46 See_Comment [Auto mated message] The system which ge nerated this result transmit nallely reference range : <=65. The reference range was not used to interpr et this result as dennys l/abnormal. [facility]2019-06-20 08:09:00 Test Item Value Reference Range Interpretation Comments Potassium Lvl (test code = Potassium 3.6 3.5-5.1 Lvl) [facility]2019-06-20 08:09:00 Test Item Value Reference Range Interpretation Comments CO2 (test code = CO2) 27 24-32 [facility]2019-06-20 08:09:00 Test Item Value Reference Range Interpretation Comments Chloride Lvl (test code = Chloride Lvl) 107 95-109 [facility]2019-06-20 08:09:00 Test Item Value Reference Range Interpretation Comments Creatinine Lvl (test code = Creatinine 0.42 0.50-1.40 Lvl) [facility]2019-06-20 08:09:00 Test Item Value Reference Range Interpretation Comments BUN (test code = BUN) 11 7-22 [facility]2019-06-20 08:09:00 Test Item Value Reference Range Interpretation Comments Sodium Lvl (test code = Sodium Lvl) 141 135-145 [facility]2019-06-20 08:09:00 Test Item Value Reference Range Interpretation Comments Glucose Lvl (test code = Glucose Lvl) 77 70-99 [facility]2019-06-20 08:09:00 Test Item Value Reference Range Interpretation Comments Total Protein (test code = Total 6.6 6.4-8.4 Protein) [facility]2019-06-20 08:09:00 Test Item Value Reference Range Interpretation Comments Albumin Lvl (test code = Albumin Lvl) 4.0 3.5-5.0 [facility]2019-06-20 08:09:00 Test Item Value Reference Range Interpretation Comments Calcium Lvl (test code = Calcium Lvl) 8.7 8.5-10.5 [facility]2019-06-20 08:09:00 Test Item Value Reference Range Interpretation Comments B/C Ratio (test code = B/C Ratio) 26 1 6-25 [place] [id number] 08:09:00 Test Item Value Reference Range Interpretation Comments A/G Ratio (test code = A/G Ratio) 1.5 1 0.7-1.6 [facility]2019-06-20 08:09:00 Test Item Value Reference Range Interpretation Comments Globulin (test code = Globulin) 2.6 2.7-4.2 [facility]2019-06-20 08:09:00 Test Item Value Reference Range Interpretation Comments AGAP (test code = AGAP) 10.6 10.0-20.0 [facility]HpvibolONCQEJHCZYSMY1267-56-23 08:09:00 Test Item Value Reference Range Interpretation Comments hCG Tot (test code = hCG Tot) [id number] [facility] HospitalXusehmdUEQIAQPEKU1174-27-70 08:09:00 Test Item Value Reference Range Interpretation Comments Large Plt (test code Moderate *ABN*(03/20/19 = Large Plt) 3:09 AM) [facility] HospitalRbtnnntKEKWTPXSJC3991-41-72 08:09:00 Test Item Value Reference Range Interpretation Comments Basophils (test code = 0.4 See_Comment [Aut omated message] The Basophils) system which ge nerated this result tra nsmitted reference range : <=1.0. The reference r jericho was not used to int erpret this result as normal/abnormal . [facility] HospitalWkesmdwAQABLCNPZW4335-72-61 08:09:00 Test Item Value Reference Range Interpretation Comments Segs (test code = Segs) 68.7 45.0-75.0 [facility] HospitalMgpbewiIJAPEEWJEI7115-37-60 08:09:00 Test Item Value Reference Range Interpretation Comments Monocytes (test code = Monocytes) 6.0 2.0-12.0 [facility] HospitalMnusvdlHJZSNVXBLJ2570-68-67 08:09:00 Test Item Value Reference Range Interpretation Comments Lymphocytes (test code = Lymphocytes) 23.2 20.0-40.0 [facility] HospitalTkqqireAONJVOISRX9463-92-93 08:09:00 Test Item Value Reference Range Interpretation Comments Eosinophils # (test code 0.3 See_Comment [A utomated message] The = Eosinophils #) system whic h generated this result tra nsmitted reference range : <=0.5. The reference r jericho was not used to int erpret this result as normal/abnormal . [facility] HospitalTypfbqnPPGIVHMLNO0547-79-65 08:09:00 Test Item Value Reference Range Interpretation Comments Lymphocytes # (test code = Lymphocytes 3.5 1.0-5.5 #) [facility] HospitalEoprpzgWTBIMLLDZX0398-74-87 08:09:00 Test Item Value Reference Range Interpretation Comments Basophils # (test code 0.1 See_Comment [Aut omated message] The = Basophils #) system which generated this result tra nsmitted reference range : <=0.2. The reference r jericho was not used to int erpret this result as normal/abnormal . [facility] HospitalPuuwpsxZXUEDDUSDX0546-27-11 08:09:00 Test Item Value Reference Range Interpretation Comments Neutrophils # (test code = Neutrophils 10.4 1.5-8.1 #) [facility] HospitalKxydookIDCRDQEPTE6072-21-84 08:09:00 Test Item Value Reference Range Interpretation Comments Eosinophils (test code = 1.7 See_Comment [A utomated message] The Eosinophils) system which ge nerated this result tra nsmitted reference range : <=4.0. The reference r jericho was not used to int erpret this result as normal/abnormal . [facility] HospitalNjrvmkwNLPAXLFLEP8009-54-49 08:09:00 Test Item Value Reference Range Interpretation Comments Monocytes # (test code 0.9 See_Comment [Aut omated message] The = Monocytes #) system which generated this result tra nsmitted reference range : <=0.8. The reference r jericho was not used to int erpret this result as normal/abnormal . [facility] HospitalNfewwfdSGQABNYUKL9285-41-65 08:09:00 Test Item Value Reference Range Interpretation Comments RBC Morph (test code = Normal (03/20/19 3:09 RBC Morph) AM) [facility] HospitalYcdvqkbKJKRXNTJKA1046-81-63 08:09:00 Test Item Value Reference Range Interpretation Comments Platelet (test code = Platelet) 342 133-450 [facility] HospitalTtcgkkwYTAIKAOMOP2668-91-46 08:09:00 Test Item Value Reference Range Interpretation Comments MCHC (test code = MCHC) 34.0 32.0-36.0 [facility] HospitalXerbrdbGSVOGXELGQ2080-04-81 08:09:00 Test Item Value Reference Range Interpretation Comments MCH (test code = MCH) 31.9 pg 27.0-31.0 [facility] HospitalUjueszzYIKYVUJIPK3405-50-59 08:09:00 Test Item Value Reference Range Interpretation Comments RDW (test code = RDW) 14.8 11.5-14.5 [facility] HospitalHjaessuKVWOUDVQFB7652-33-81 08:09:00 Test Item Value Reference Range Interpretation Comments Hct (test code = Hct) 34.5 36.0-48.0 [facility] HospitalOtfmzcrVZPKZYIIQJ4990-61-30 08:09:00 Test Item Value Reference Range Interpretation Comments MCV (test code = MCV) 93.8 80.0-98.0 [facility] HospitalTydhtvfRGNGFMVHXX0488-42-24 08:09:00 Test Item Value Reference Range Interpretation Comments MPV (test code = MPV) 8.0 7.4-10.4 [facility] HospitalGojcooaUMPQBAOTBF0378-37-64 08:09:00 Test Item Value Reference Range Interpretation Comments WBC (test code = WBC) 15.2 3.7-10.4 [facility] HospitalZzfbccrKZGZBOSYCJ3177-94-26 08:09:00 Test Item Value Reference Range Interpretation Comments Hgb (test code = Hgb) 11.7 12.0-16.0 [facility] HospitalBcbyighRGMFLKHYGA0367-61-42 08:09:00 Test Item Value Reference Range Interpretation Comments RBC (test code = RBC) 3.68 4.20-5.40 [facility] AND [id number] 07:40:00 Test Item Value Reference Range Interpretation Comments UA Urobilinogen (test code = UA <=1.0 mg/dL 0.1-1.0 Urobilinogen) [facility] AND [id number] 07:40:00 Test Item Value Reference Range Interpretation Comments UA Sq Epi (test code = UA Sq Epi) Few /LPF [facility] AND [id number] 07:40:00 Test Item Value Reference Range Interpretation Comments UA Leuk Est (test code Trace *ABN*(03/20/19 = UA Leuk Est) 2:40 AM) [facility] AND [id number] 07:40:00 Test Item Value Reference Range Interpretation Comments UA RBC (test code = 3 See_Comment [Automa nallely message] The UA RBC) system which ge nerated this result transmit nallely reference range : <=2. The reference range was not used to interpr et this result as dennys l/abnormal. [facility] AND [id number] 07:40:00 Test Item Value Reference Range Interpretation Comments UA WBC (test code = 6 See_Comment [Automa nallely message] The UA WBC) system which ge nerated this result transmit nallely reference range : <=5. The reference range was not used to interpr et this result as dennys l/abnormal. [facility] AND [id number] 07:40:00 Test Item Value Reference Range Interpretation Comments UA Mucus (test code = UA Mucus) Few /LPF [facility] AND [id number] 07:40:00 Test Item Value Reference Range Interpretation Comments UA Bacteria (test code = UA Occasional /HPF Bacteria) [facility] AND [id number] 07:40:00 Test Item Value Reference Range Interpretation Comments UA Bili (test code = Negative *NA*(03/20/19 UA Bili) 2:40 AM) [facility] AND [id number] 07:40:00 Test Item Value Reference Range Interpretation Comments UA Ketones (test code = UA Negative mg/dL Ketones) [facility] AND [id number] 07:40:00 Test Item Value Reference Range Interpretation Comments UA Blood (test code = Negative (03/20/19 2:40 UA Blood) AM) [facility] AND [id number] 07:40:00 Test Item Value Reference Range Interpretation Comments UA Nitrite (test code Negative (03/20/19 2:40 = UA Nitrite) AM) [facility] AND [id number] 07:40:00 Test Item Value Reference Range Interpretation Comments UA Spec Grav (test code = UA Spec 1.018 1 Grav) [facility] AND [id number] 07:40:00 Test Item Value Reference Range Interpretation Comments UA Glucose (test code = UA Negative mg/dL Glucose) [facility] AND [id number] 07:40:00 Test Item Value Reference Range Interpretation Comments UA Turbidity (test code Slight *ABN*(03/20/19 = UA Turbidity) 2:40 AM) [facility] AND [id number] 07:40:00 Test Item Value Reference Range Interpretation Comments UA Color (test code = Light Yellow UA Color) *NA*(03/20/19 2:40 AM) [facility] AND [id number] 07:40:00 Test Item Value Reference Range Interpretation Comments UA pH (test code = UA pH) 6.0 1 5.0-8.0 [facility] AND [id number] 07:40:00 Test Item Value Reference Range Interpretation Comments UA Protein (test code = UA Negative mg/dL Protein) [facility] [id number] 07:40:00 Test Item Value Reference Range Interpretation Comments Culture: Urine (test 10,000 - 50,000 CFU/mL code = Culture: Urine) Yeast 10,000 - 50,000 CFU/mL Skin [place] [facility] AND [id number] 06:05:00 Test Item Value Reference Range Interpretation Comments UA Blood (test code = Small *ABN*(12/06/18 UA Blood) 12:05 AM) [facility] AND [id number] 06:05:00 Test Item Value Reference Range Interpretation Comments UA Bili (test code = Negative *NA*(12/06/18 UA Bili) 12:05 AM) [facility] AND [id number] 06:05:00 Test Item Value Reference Range Interpretation Comments UA Urobilinogen (test code = UA <=1.0 mg/dL 0.1-1.0 Urobilinogen) [facility] AND [id number] 06:05:00 Test Item Value Reference Range Interpretation Comments UA RBC (test code = 2 See_Comment [Automa nallely message] The UA RBC) system which ge nerated this result transmit nallely reference range : <=2. The reference range was not used to interpr et this result as dennys l/abnormal. [facility] AND [id number] 06:05:00 Test Item Value Reference Range Interpretation Comments UA Mucus (test code = UA Mucus) Few /LPF [facility] AND [id number] 06:05:00 Test Item Value Reference Range Interpretation Comments UA Bacteria (test code = None Seen (12/06/18 UA Bacteria) 12:05 AM) [facility] AND [id number] 06:05:00 Test Item Value Reference Range Interpretation Comments UA Leuk Est (test code Trace *ABN*(12/06/18 = UA Leuk Est) 12:05 AM) [facility] AND [id number] 06:05:00 Test Item Value Reference Range Interpretation Comments UA Nitrite (test code Negative (12/06/18 12:05 = UA Nitrite) AM) [facility] AND [id number] 06:05:00 Test Item Value Reference Range Interpretation Comments UA WBC (test code = 7 See_Comment [Automa nallely message] The UA WBC) system which ge nerated this result transmit nallely reference range : <=5. The reference range was not used to interpr et this result as dennys l/abnormal. [facility] AND [id number] 06:05:00 Test Item Value Reference Range Interpretation Comments UA Sq Epi (test code = UA Sq Epi) Many /LPF [facility] AND [id number] 06:05:00 Test Item Value Reference Range Interpretation Comments UA Color (test code = Light Yellow UA Color) *NA*(12/06/18 12:05 AM) [facility] AND [id number] 06:05:00 Test Item Value Reference Range Interpretation Comments UA Turbidity (test code Slight *ABN*(12/06/18 = UA Turbidity) 12:05 AM) [facility] AND [id number] 06:05:00 Test Item Value Reference Range Interpretation Comments UA Spec Grav (test code = UA Spec 1.009 1 Grav) [facility] AND [id number] 06:05:00 Test Item Value Reference Range Interpretation Comments UA Protein (test code Negative (12/06/18 12:05 = UA Protein) AM) [facility] AND [id number] 06:05:00 Test Item Value Reference Range Interpretation Comments UA Ketones (test code Negative *NA*(12/06/18 = UA Ketones) 12:05 AM) [facility] AND [id number] 06:05:00 Test Item Value Reference Range Interpretation Comments UA Glucose (test code Negative *NA*(12/06/18 = UA Glucose) 12:05 AM) [facility] AND [id number] 06:05:00 Test Item Value Reference Range Interpretation Comments UA pH (test code = UA pH) 6.0 1 5.0-8.0 [facility] [id number] 06:05:00 Test Item Value Reference Range Interpretation Comments U Preg (test code = U Negative (12/06/18 12:05 Preg) AM) [employer] [id number] 05:31:00 Test Item Value Reference Range Interpretation Comments ABO/Rh (test code = ABO/Rh) [facility] [id number] 05:31:00 Test Item Value Reference Range Interpretation Comments Troponin-I (test code no gt See_Comment [Auto mated message] The = Troponin-I) system which g enerated this result transmit nallely reference range : <=0.40. The reference r jericho was not used to interpr et this result as dennys l/abnormal. [employer] [id number] 05:31:00 Test Item Value Reference Range Interpretation Comments Total CK (test code = Total CK) 41 12-191 [employer] [id number] 05:31:00 Test Item Value Reference Range Interpretation Comments AST (test code = AST) 13 See_Comment [Auto mated message] The system which ge nerated this result transmit nallely reference range : <=37. The reference range was not used to interpr et this result as dennys l/abnormal. [employer]2019-03-08 05:31:00 Test Item Value Reference Range Interpretation Comments ALT (test code = ALT) 20 See_Comment [Auto mated message] The system which ge nerated this result transmit nallely reference range : <=65. The reference range was not used to interpr et this result as dennys l/abnormal. [employer] [id number] 05:31:00 Test Item Value Reference Range Interpretation Comments Alk Phos (test code = Alk Phos) 49 39-136 [employer] [id number] 05:31:00 Test Item Value Reference Range Interpretation Comments Bili Total (test code = Bili Total) 0.4 0.2-1.3 [employer]2019-03-08 05:31:00 Test Item Value Reference Range Interpretation Comments eGFR (test code = eGFR) 126 [employer]2019-03-08 05:31:00 Test Item Value Reference Range Interpretation Comments Calcium Lvl (test code = Calcium Lvl) 8.2 8.5-10.5 [facility]2019-03-08 05:31:00 Test Item Value Reference Range Interpretation Comments Albumin Lvl (test code = Albumin Lvl) 4.0 3.5-5.0 [facility]2019-03-08 05:31:00 Test Item Value Reference Range Interpretation Comments Total Protein (test code = Total 6.8 6.4-8.4 Protein) [facility]2019-03-08 05:31:00 Test Item Value Reference Range Interpretation Comments Creatinine Lvl (test code = Creatinine 0.61 0.50-1.40 Lvl) [facility]2019-03-08 05:31:00 Test Item Value Reference Range Interpretation Comments BUN (test code = BUN) 11 7-22 [facility]2019-03-08 05:31:00 Test Item Value Reference Range Interpretation Comments Glucose Lvl (test code = Glucose Lvl) 82 70-99 [facility]2019-03-08 05:31:00 Test Item Value Reference Range Interpretation Comments Chloride Lvl (test code = Chloride Lvl) 108 95-109 [facility]2019-03-08 05:31:00 Test Item Value Reference Range Interpretation Comments Potassium Lvl (test code = Potassium 3.8 3.5-5.1 Lvl) [facility]2019-03-08 05:31:00 Test Item Value Reference Range Interpretation Comments Sodium Lvl (test code = Sodium Lvl) 141 135-145 [facility]2019-03-08 05:31:00 Test Item Value Reference Range Interpretation Comments CO2 (test code = CO2) 29 24-32 [facility]2019-03-08 05:31:00 Test Item Value Reference Range Interpretation Comments AGAP (test code = AGAP) 7.8 10.0-20.0 [facility]2019-03-08 05:31:00 Test Item Value Reference Range Interpretation Comments A/G Ratio (test code = A/G Ratio) 1.4 1 0.7-1.6 [place] [id number] 05:31:00 Test Item Value Reference Range Interpretation Comments B/C Ratio (test code = B/C Ratio) 18 1 6-25 [facility]2019-03-08 05:31:00 Test Item Value Reference Range Interpretation Comments Globulin (test code = Globulin) 2.8 2.7-4.2 [id number] 05:31:00 Test Item Value Reference Range Interpretation Comments hCG Tot (test code = hCG Tot) no gt [id number] 05:31:00 Test Item Value Reference Range Interpretation Comments Basophils (test code = 1.1 See_Comment [Aut omated message] The Basophils) system which ge nerated this result tra nsmitted reference range : <=1.0. The reference r jericho was not used to int erpret this result as normal/abnormal . [facility] HospitalIfvepxcLHREMCRCQN9793-12-13 05:31:00 Test Item Value Reference Range Interpretation Comments Neutrophils # (test code = Neutrophils 4.4 1.5-8.1 #) [facility] HospitalFulsjtmILTDDVBVQL9052-51-06 05:31:00 Test Item Value Reference Range Interpretation Comments Basophils # (test code 0.1 See_Comment [Aut omated message] The = Basophils #) system which generated this result tra nsmitted reference range : <=0.2. The reference r jericho was not used to int erpret this result as normal/abnormal . [facility] HospitalGwjcevpCGQLIKFMIZ6003-44-51 05:31:00 Test Item Value Reference Range Interpretation Comments Lymphocytes # (test code = Lymphocytes 3.9 1.0-5.5 #) [facility] HospitalBzasqzwJDDDMFBGDL6290-75-73 05:31:00 Test Item Value Reference Range Interpretation Comments Monocytes # (test code 0.5 See_Comment [Aut omated message] The = Monocytes #) system which generated this result tra nsmitted reference range : <=0.8. The reference r jericho was not used to int erpret this result as normal/abnormal . [facility] HospitalBgurygnREAJWPFGBU3667-26-37 05:31:00 Test Item Value Reference Range Interpretation Comments Eosinophils # (test code 0.2 See_Comment [A utomated message] The = Eosinophils #) system whic h generated this result tra nsmitted reference range : <=0.5. The reference r jericho was not used to int erpret this result as normal/abnormal . [facility] HospitalVqaazjlXEPZLVVWSS2547-91-57 05:31:00 Test Item Value Reference Range Interpretation Comments Segs (test code = Segs) 48.0 45.0-75.0 [facility] HospitalUxcywtfXGECZEOYNC8157-54-65 05:31:00 Test Item Value Reference Range Interpretation Comments Lymphocytes (test code = Lymphocytes) 42.6 20.0-40.0 [facility] HospitalUdjkiztVYRVCSFPEN0743-58-83 05:31:00 Test Item Value Reference Range Interpretation Comments Monocytes (test code = Monocytes) 5.9 2.0-12.0 [facility] HospitalWokcgtiXQSMGPEKTB8739-33-39 05:31:00 Test Item Value Reference Range Interpretation Comments Eosinophils (test code = 2.4 See_Comment [A utomated message] The Eosinophils) system which ge nerated this result tra nsmitted reference range : <=4.0. The reference r jericho was not used to int erpret this result as normal/abnormal . [facility] HospitalHbwfuywVWZHIBWYSB4067-64-10 05:31:00 Test Item Value Reference Range Interpretation Comments RDW (test code = RDW) 13.8 11.5-14.5 [facility] HospitalEiizwraRJHNOGSUBI1750-13-77 05:31:00 Test Item Value Reference Range Interpretation Comments MCH (test code = MCH) 31.7 pg 27.0-31.0 [facility] HospitalMmxwwgzEJYKFOEKLI0174-10-79 05:31:00 Test Item Value Reference Range Interpretation Comments MPV (test code = MPV) 7.5 7.4-10.4 [facility] HospitalRjzsjfhKUATCUMUEN9919-21-19 05:31:00 Test Item Value Reference Range Interpretation Comments MCHC (test code = MCHC) 35.1 32.0-36.0 [facility] HospitalWqumfpvJYWWTPIDIA5884-34-65 05:31:00 Test Item Value Reference Range Interpretation Comments Platelet (test code = Platelet) 285 133-450 [facility] HospitalTpwrfugWCTTIAKTPV5979-37-91 05:31:00 Test Item Value Reference Range Interpretation Comments RBC (test code = RBC) 4.49 4.20-5.40 [facility] HospitalSsqcutvQFTIHVWIAP2968-81-73 05:31:00 Test Item Value Reference Range Interpretation Comments Hgb (test code = Hgb) 14.3 12.0-16.0 [facility] HospitalJnfugahKTWDLSCIUT6867-80-09 05:31:00 Test Item Value Reference Range Interpretation Comments Hct (test code = Hct) 40.6 36.0-48.0 [facility]TmvqiplAIIMOKYJLN3245-71-46 05:31:00 Test Item Value Reference Range Interpretation Comments MCV (test code = MCV) 90.5 80.0-98.0 [facility] ZzdbifwRNIQKVVRPQ9617-14-99 05:31:00 Test Item Value Reference Range Interpretation Comments WBC (test code = WBC) 9.2 3.7-10.4 [facility]ItfvzmqXDHWXQQFNV5651-89-01 10:45:00 Test Item Value Reference Range Interpretation Comments Hct (test code = Hct) 32.4 36.0-48.0 [facility]vineEysotoqLBSQGUMNYB6567-83-07 10:45:00 Test Item Value Reference Range Interpretation Comments Hgb (test code = Hgb) 11.0 12.0-16.0 [employer] [id number] 20:12:00 Test Item Value Reference Range Interpretation Comments Rhig Reqd (test code = See Note 1(03/28/17 3:12 Rhig Reqd) PM) [facility] [employer] [id number] 20:12:00 Test Item Value Reference Range Interpretation Comments Antibody Scrn (test Negative (03/28/17 3:12 code = Antibody Scrn) PM) [employer] [id number] 20:12:00 Test Item Value Reference Range Interpretation Comments ABO/Rh (test code = ABO/Rh) A POS [facility] [employer] [id number] 19:45:00 Test Item Value Reference Range Interpretation Comments Alk Phos (test code = Alk Phos) 256 39-136 [facility] [employer] [id number] 19:45:00 Test Item Value Reference Range Interpretation Comments Bili Total (test code = Bili Total) 0.3 0.2-1.3 [employer]2017-06-28 19:45:00 Test Item Value Reference Range Interpretation Comments Total Protein (test code = Total 6.0 6.4-8.4 Protein) [employer]2017-06-28 19:45:00 Test Item Value Reference Range Interpretation Comments A/G Ratio (test code = A/G Ratio) 0.8 0.7-1.6 [employer]2017-06-28 19:45:00 Test Item Value Reference Range Interpretation Comments Globulin (test code = Globulin) 3.3 2.7-4.2 [facility]2017-06-28 19:45:00 Test Item Value Reference Range Interpretation Comments eGFR (test code = eGFR) 139 [facility]2017-06-28 19:45:00 Test Item Value Reference Range Interpretation Comments B/C Ratio (test code = B/C Ratio) 21 6-25 [facility]2017-06-28 19:45:00 Test Item Value Reference Range Interpretation Comments Albumin Lvl (test code = Albumin Lvl) 2.7 3.5-5.0 [facility]2017-06-28 19:45:00 Test Item Value Reference Range Interpretation Comments CO2 (test code = CO2) 24 24-32 [facility]2017-06-28 19:45:00 Test Item Value Reference Range Interpretation Comments Creatinine Lvl (test code = Creatinine 0.48 0.50-1.40 Lvl) [facility]2017-06-28 19:45:00 Test Item Value Reference Range Interpretation Comments Glucose Lvl (test code = Glucose Lvl) 71 70-99 [facility]2017-06-28 19:45:00 Test Item Value Reference Range Interpretation Comments BUN (test code = BUN) 10 7-22 [facility]2017-06-28 19:45:00 Test Item Value Reference Range Interpretation Comments AST (test code = AST) 18 See_Comment [Auto mated message] The system which ge nerated this result transmit nallely reference range : <=37. The reference range was not used to interpr et this result as dennys l/abnormal. [facility]2017-06-28 19:45:00 Test Item Value Reference Range Interpretation Comments ALT (test code = ALT) 14 See_Comment [Auto mated message] The system which ge nerated this result transmit nallely reference range : <=65. The reference range was not used to interpr et this result as dennys l/abnormal. [facility]2017-06-28 19:45:00 Test Item Value Reference Range Interpretation Comments AGAP (test code = AGAP) 13.5 10.0-20.0 [facility]2017-06-28 19:45:00 Test Item Value Reference Range Interpretation Comments Chloride Lvl (test code = Chloride Lvl) 108 95-109 [facility]annCHE[facility] [id number] 19:45:00 Test Item Value Reference Range Interpretation Comments Calcium Lvl (test code = Calcium Lvl) 8.3 8.5-10.5 [facility] [id number] 19:45:00 Test Item Value Reference Range Interpretation Comments Sodium Lvl (test code = Sodium Lvl) 141 135-145 [facility]CHE[facility] [id number] 19:45:00 Test Item Value Reference Range Interpretation Comments Potassium Lvl (test code = Potassium 4.5 3.5-5.1 Lvl) [facility]DR[facility] [id number] 19:45:00 Test Item Value Reference Range Interpretation Comments U Cannab Scr (test Negative *NA*(03/28/17 code = U Cannab Scr) 2:45 PM) [facility] [id number] 19:45:00 Test Item Value Reference Range Interpretation Comments U Phencyc Scr (test Negative *NA*(03/28/17 code = U Phencyc Scr) 2:45 PM) [facility] [id number] 19:45:00 Test Item Value Reference Range Interpretation Comments UDS Note (test code = See Note (03/28/17 2:45 UDS Note) PM) [facility] [id number] 19:45:00 Test Item Value Reference Range Interpretation Comments U Opiate Scr (test Positive *ABN*(03/28/17 code = U Opiate Scr) 2:45 PM) [facility] [id number] 19:45:00 Test Item Value Reference Range Interpretation Comments U Cocaine Scr (test Negative *NA*(03/28/17 code = U Cocaine Scr) 2:45 PM) [facility] [id number] 19:45:00 Test Item Value Reference Range Interpretation Comments U Benzodia Scr (test Positive *ABN*(03/28/17 code = U Benzodia Scr) 2:45 PM) [facility] [id number] 19:45:00 Test Item Value Reference Range Interpretation Comments U Gifty Scr (test code Negative *NA*(03/28/17 = U Gifty Scr) 2:45 PM) [facility] [id number] 19:45:00 Test Item Value Reference Range Interpretation Comments U Amph Scr (test code Negative *NA*(03/28/17 = U Amph Scr) 2:45 PM) [facility] HospitalAgmgoqqEVGYVLUYKL2796-97-04 19:45:00 Test Item Value Reference Range Interpretation Comments Eosinophils (test code = 1.9 See_Comment [A utomated message] The Eosinophils) system which ge nerated this result tra nsmitted reference range : <=4.0. The reference r jerciho was not used to int erpret this result as normal/abnormal . [facility] HospitalKzgaqamKLISKUYOAV5912-75-77 19:45:00 Test Item Value Reference Range Interpretation Comments Basophils (test code = 0.8 See_Comment [Aut omated message] The Basophils) system which ge nerated this result tra nsmitted reference range : <=1.0. The reference r jericho was not used to int erpret this result as normal/abnormal . [facility] HospitalHmgtaqpJCKNNIYQEP6521-65-77 19:45:00 Test Item Value Reference Range Interpretation Comments Monocytes # (test code 1.2 See_Comment [Aut omated message] The = Monocytes #) system which generated this result tra nsmitted reference range : <=0.8. The reference r jericho was not used to int erpret this result as normal/abnormal . [facility] HospitalCjjjgixXUBZLPSTRQ5850-61-56 19:45:00 Test Item Value Reference Range Interpretation Comments Lymphocytes # (test code = Lymphocytes 2.4 1.0-5.5 #) [facility] HospitalCxxkizsLBVSKDYBVL5649-01-95 19:45:00 Test Item Value Reference Range Interpretation Comments Segs-Bands # (test code = Segs-Bands #) 11.5 1.5-8.1 [facility] HospitalJlujtkwJKNPZNOQKO6702-31-94 19:45:00 Test Item Value Reference Range Interpretation Comments Eosinophils # (test code 0.3 See_Comment [A utomated message] The = Eosinophils #) system [facility] h generated this result tra nsmitted reference range : <=0.5. The reference r jericho was not used to int erpret this result as normal/abnormal . [facility] HospitalJkwdspmKJJXYUDDPP5536-85-68 19:45:00 Test Item Value Reference Range Interpretation Comments Basophils # (test code 0.1 See_Comment [Aut omated message] The = Basophils #) system which generated this result tra nsmitted reference range : <=0.2. The reference r jericho was not used to int erpret this result as normal/abnormal . [facility] HospitalRwxyqhbVGCSTLNPKJ5542-51-21 19:45:00 Test Item Value Reference Range Interpretation Comments Lymphocytes (test code = Lymphocytes) 15.7 20.0-40.0 [facility] HospitalCltbgbkTDJNRDOPNI2399-97-40 19:45:00 Test Item Value Reference Range Interpretation Comments Monocytes (test code = Monocytes) 7.5 2.0-12.0 [facility] HospitalPsppmvzUFTZIKAKFN2638-53-92 19:45:00 Test Item Value Reference Range Interpretation Comments Segs (test code = Segs) 74.1 45.0-75.0 [facility] HospitalLfwcfdcJSKSAMWXGM9243-17-69 19:45:00 Test Item Value Reference Range Interpretation Comments MCHC (test code = MCHC) 33.7 32.0-36.0 [facility] HospitalSwausnvLZNZKNEMIB5342-03-52 19:45:00 Test Item Value Reference Range Interpretation Comments MCH (test code = MCH) 30.3 pg 27.0-31.0 [facility] HospitalYqgcppwBZWHOWGSDG4484-10-94 19:45:00 Test Item Value Reference Range Interpretation Comments RDW (test code = RDW) 13.0 11.5-14.5 [facility] HospitalLvdlmfwXVVFLOTBTZ6248-03-50 19:45:00 Test Item Value Reference Range Interpretation Comments Platelet (test code = Platelet) 306 133-450 [facility] HospitalNswbbngQPIYMLNNZU1735-20-77 19:45:00 Test Item Value Reference Range Interpretation Comments MPV (test code = MPV) 8.9 7.4-10.4 [facility] HospitalIooyekpWJJJKUWWRO6959-72-41 19:45:00 Test Item Value Reference Range Interpretation Comments Hgb (test code = Hgb) 10.8 12.0-16.0 [facility] HospitalPmzioufDXMMTOWDNH3931-52-65 19:45:00 Test Item Value Reference Range Interpretation Comments RBC (test code = RBC) 3.56 4.20-5.40 [facility] HospitalXyjlfqjQFLURACULI3150-81-71 19:45:00 Test Item Value Reference Range Interpretation Comments Hct (test code = Hct) 32.0 36.0-48.0 [facility] HospitalGzrfkyzOPVEDGOEUY2649-40-16 19:45:00 Test Item Value Reference Range Interpretation Comments MCV (test code = MCV) 89.8 80.0-98.0 [facility] CenterAexxdkqJFBZEUZZDC3314-75-15 19:45:00 Test Item Value Reference Range Interpretation Comments WBC (test code = WBC) 15.5 3.7-10.4 [facility] CenterDeaosefHUNFIZUICV8421-78-48 19:45:00 Test Item Value Reference Range Interpretation Comments Rubella IgG (test code = Rubella IgG) 36.1 [facility] CenterImjrmshLGQODRPRXK1341-71-74 19:45:00 Test Item Value Reference Range Interpretation Comments Hep Bs Ag (test code Negative *NA*(03/28/17 = Hep Bs Ag) 2:45 PM) [facility] CenterHskcjpaWWRGTXNTJR8456-90-74 19:45:00 Test Item Value Reference Range Interpretation Comments Treponemal Scr (test Non Reactive code = Treponemal Scr) *NA*(03/28/17 2:45 PM) [facility] CenterUnwhsvjOLDUPBWMPW7601-99-84 19:45:00 Test Item Value Reference Range Interpretation Comments HIV. (test code = Negative *NA*(03/28/17 HIV.) 2:45 PM) [facility] [id number] 20:38:00 Test Item Value Reference Range Interpretation Comments UA Urobilinogen (test code = UA 1.0 0.1-1.0 Urobilinogen) [facility] AND [id number] 20:38:00 Test Item Value Reference Range Interpretation Comments UA Blood (test code = Negative (12/04/16 2:38 UA Blood) PM) [facility] AND [id number] 20:38:00 Test Item Value Reference Range Interpretation Comments UA Nitrite (test code Negative (12/04/16 2:38 = UA Nitrite) PM) [facility] [id number] 20:38:00 Test Item Value Reference Range Interpretation Comments UA Leuk Est (test Negative (12/04/16 2:38 code = UA Leuk Est) PM) [facility] [id number] 20:38:00 Test Item Value Reference Range Interpretation Comments UA Protein (test code = UA Negative mg/dL Protein) [facility] [id number] 20:38:00 Test Item Value Reference Range Interpretation Comments UA Glucose (test code = UA Glucose) 100 mg/dL [facility] [id number] 20:38:00 Test Item Value Reference Range Interpretation Comments UA Ketones (test code = UA Negative mg/dL Ketones) [facility] [id number] 20:38:00 Test Item Value Reference Range Interpretation Comments UA Bili (test code = Negative *NA*(12/04/16 UA Bili) 2:38 PM) [facility] AND [id number] 20:38:00 Test Item Value Reference Range Interpretation Comments UA Turbidity (test code = Clear (12/04/16 2:38 UA Turbidity) PM) [facility] [id number] 20:38:00 Test Item Value Reference Range Interpretation Comments UA Color (test code = Yellow *NA*(12/04/16 2:38 UA Color) PM) [facility] [id number] 20:38:00 Test Item Value Reference Range Interpretation Comments UA Spec Grav (test code = UA Spec 1.015 1 Grav) [facility] [id number] 20:38:00 Test Item Value Reference Range Interpretation Comments UA pH (test code = UA pH) 7.0 1 5.0-8.0 [facility] AND [id number] 20:38:00 Test Item Value Reference Range Interpretation Comments UA Mucus (test code = UA Mucus) Few /LPF [facility] [id number] 20:38:00 Test Item Value Reference Range Interpretation Comments UA Bacteria (test code = UA Occasional /HPF Bacteria) [facility] [id number] 20:38:00 Test Item Value Reference Range Interpretation Comments UA RBC (test None Seen See_Comment [Automated [place]] code = UA RBC) (12/04/16 2:38 PM) The syste m which generated this result transmitted ref erence range: <=2. The reference range was not used to int erpret this result as normal/abnormal . [facility] [id number] 20:38:00 Test Item Value Reference Range Interpretation Comments UA WBC (test code = UA None Seen (12/04/16 2:38 WBC) PM) [facility] AND [id number] 20:38:00 Test Item Value Reference Range Interpretation Comments UA Sq Epi (test code = UA Sq Epi) Few /LPF [facility] [id number] 20:38:00 Test Item Value Reference Range Interpretation Comments Micro? (test code = Performed (12/04/16 2:38 Micro?) PM) [facility] [id number] 20:38:00 Test Item Value Reference Range Interpretation Comments U Preg (test code = U Positive *ABN*(12/04/16 Preg) 2:38 PM) [facility] [id number] 20:19:00 Test Item Value Reference Range Interpretation Comments BUN (test code = BUN) 10 7-22 [facility] [id number] 20:19:00 Test Item Value Reference Range Interpretation Comments Calcium Lvl (test code = Calcium Lvl) 8.2 8.5-10.5 [facility]2017-03-06 20:19:00 Test Item Value Reference Range Interpretation Comments AGAP (test code = AGAP) 12.8 10.0-20.0 [facility] PointeFlfmmhrIKVYLCVJMVUFN2417-25-85 20:19:00 Test Item Value Reference Range Interpretation Comments hCG Tot (test code = hCG Tot) 2327 [facility] HospitalWdowfwgWERSJHFNRJ7133-33-58 20:19:00 Test Item Value Reference Range Interpretation Comments Monocytes # (test code 0.4 See_Comment [Aut omated message] The = Monocytes #) system which generated this result tra nsmitted reference range : <=0.8. The reference r jericho was not used to int erpret this result as normal/abnormal . [facility] [id number] 20:19:00 Test Item Value Reference Range Interpretation Comments Eosinophils # (test code 0.1 See_Comment [A utomated message] The = Eosinophils #) system whic h generated this result tra nsmitted reference range : <=0.5. The reference r jericho was not used to int erpret this result as normal/abnormal . [facility]LlhggnwIBFRROTTJT8734-38-06 20:19:00 Test Item Value Reference Range Interpretation Comments Segs-Bands # (test code = Segs-Bands #) 7.7 1.5-8.1 [facility] HospitalSafnvyoXMMXZDTUYG6157-62-64 20:19:00 Test Item Value Reference Range Interpretation Comments Eosinophils (test code = 1.1 See_Comment [A utomated message] The Eosinophils) system which ge nerated this result tra nsmitted reference range : <=4.0. The reference r jericho was not used to int erpret this result as normal/abnormal . [facility] HospitalOieuzayJFFXHNEQCR7284-64-55 20:19:00 Test Item Value Reference Range Interpretation Comments Basophils (test code = 0.7 See_Comment [Aut omated message] The Basophils) system which ge nerated this result tra nsmitted reference range : <=1.0. The reference r jericho was not used to int erpret this result as normal/abnormal . [facility] HospitalYdupytbJDJEIDTEKO2423-24-62 20:19:00 Test Item Value Reference Range Interpretation Comments Lymphocytes (test code = Lymphocytes) 15.7 20.0-40.0 [facility] HospitalVkdcofoFFFVRJRXOY3225-98-44 20:19:00 Test Item Value Reference Range Interpretation Comments Lymphocytes # (test code = Lymphocytes 1.5 1.0-5.5 #) [facility] HospitalLliuqvoPMVUEOTFEK7452-98-59 20:19:00 Test Item Value Reference Range Interpretation Comments Monocytes (test code = Monocytes) 4.3 2.0-12.0 [facility] HospitalKslsxktYDGAXHZQCS6302-20-33 20:19:00 Test Item Value Reference Range Interpretation Comments Basophils # (test code 0.1 See_Comment [Aut omated message] The = Basophils #) system which generated this result tra nsmitted reference range : <=0.2. The reference r jericho was not used to int erpret this result as normal/abnormal . [facility] HospitalArzknjoFLYGSCKGFU3973-51-87 20:19:00 Test Item Value Reference Range Interpretation Comments Segs (test code = Segs) 78.2 45.0-75.0 [facility] HospitalToctszlYOEREKWJBW5789-64-64 20:19:00 Test Item Value Reference Range Interpretation Comments Hct (test code = Hct) 33.4 36.0-48.0 [facility] HospitalEtjpgsiYAYTOOHMRI9068-79-27 20:19:00 Test Item Value Reference Range Interpretation Comments Hgb (test code = Hgb) 11.4 12.0-16.0 [facility] HospitalJgjclisBZCFWYRSED3924-10-47 20:19:00 Test Item Value Reference Range Interpretation Comments WBC (test code = WBC) 9.8 3.7-10.4 [facility] HospitalJmmfxrfSKTAISLSMS5701-59-65 20:19:00 Test Item Value Reference Range Interpretation Comments RBC (test code = RBC) 3.55 4.20-5.40 [facility] HospitalAqbffuvXDIHVAIUEX2790-58-95 20:19:00 Test Item Value Reference Range Interpretation Comments MCHC (test code = MCHC) 34.1 32.0-36.0 [facility] HospitalWkurymcMYWMFFASEV2639-34-45 20:19:00 Test Item Value Reference Range Interpretation Comments MCH (test code = MCH) 32.1 pg 27.0-31.0 [facility] HospitalEqwnmobKOZUMUPIFH5101-21-59 20:19:00 Test Item Value Reference Range Interpretation Comments MPV (test code = MPV) 7.5 7.4-10.4 [facility] HospitalJewpobbSHUQUNGSQA6757-33-92 20:19:00 Test Item Value Reference Range Interpretation Comments MCV (test code = MCV) 94.2 80.0-98.0 [facility] HospitalLpqhbseZMQYFONPTT5690-28-79 20:19:00 Test Item Value Reference Range Interpretation Comments Platelet (test code = Platelet) 288 133-450 [facility] HospitalJidvbusFZTFHRUURB0783-02-12 20:19:00 Test Item Value Reference Range Interpretation Comments RDW (test code = RDW) 14.4 11.5-14.5 [facility]2017-03-06 20:19:00 Test Item Value Reference Range Interpretation Comments eGFR (test code = eGFR) 150 [facility]2017-03-06 20:19:00 Test Item Value Reference Range Interpretation Comments CO2 (test code = CO2) 25 24-32 [facility]2017-03-06 20:19:00 Test Item Value Reference Range Interpretation Comments Sodium Lvl (test code = Sodium Lvl) 142 135-145 [facility]2017-03-06 20:19:00 Test Item Value Reference Range Interpretation Comments Potassium Lvl (test code = Potassium 3.8 3.5-5.1 Lvl) [facility]2017-03-06 20:19:00 Test Item Value Reference Range Interpretation Comments Creatinine Lvl (test code = Creatinine 0.38 0.50-1.40 Lvl) [facility]2017-03-06 20:19:00 Test Item Value Reference Range Interpretation Comments Chloride Lvl (test code = Chloride Lvl) 108 95-109 [email or web address] [id number] 20:19:00 Test Item Value Reference Range Interpretation Comments Glucose Lvl (test code = Glucose Lvl) 61 70-99 [facility] [id number] 18:51:00 Test Item Value Reference Range Interpretation Comments ABO/Rh (test code = ABO/Rh) A POS [facility] [employer] [id number] 18:51:00 Test Item Value Reference Range Interpretation Comments B/C Ratio (test code = B/C Ratio) 18 - [email or web address] [id number] 18:51:00 Test Item Value Reference Range Interpretation Comments Globulin (test code = Globulin) 2.7 2.0-4.0 [facility] [id number] 18:51:00 Test Item Value Reference Range Interpretation Comments AGAP (test code = AGAP) 8.7 10.0-20.0 [facility] [id number] 18:51:00 Test Item Value Reference Range Interpretation Comments A/G Ratio (test code = A/G Ratio) 1.3 0.7-1.6 [facility] [id number] 18:51:00 Test Item Value Reference Range Interpretation Comments CO2 (test code = CO2) 26 24-32 [facility] [id number] 18:51:00 Test Item Value Reference Range Interpretation Comments Potassium Lvl (test code = Potassium 3.7 3.5-5.1 Lvl) [facility] [id number] 18:51:00 Test Item Value Reference Range Interpretation Comments Calcium Lvl (test code = Calcium Lvl) 8.5 8.5-10.5 [facility] [id number] 18:51:00 Test Item Value Reference Range Interpretation Comments Sodium Lvl (test code = Sodium Lvl) 138 135-145 [email or web address] [id number] 18:51:00 Test Item Value Reference Range Interpretation Comments eGFR (test code = eGFR) 148 [facility]2015-10-24 18:51:00 Test Item Value Reference Range Interpretation Comments ALT (test code = ALT) 16 See_Comment [Auto mated message] The system which ge nerated this result transmit nallely reference range : <=65. The reference range was not used to interpr et this result as dennys l/abnormal. [facility]2015-10-24 18:51:00 Test Item Value Reference Range Interpretation Comments Bili Total (test code = Bili Total) 0.3 0.2-1.3 [facility]2015-10-24 18:51:00 Test Item Value Reference Range Interpretation Comments AST (test code = AST) 9 See_Comment [Auto mated message] The system which ge nerated this result transmit nallely reference range : <=37. The reference range was not used to interpr et this result as dennys l/abnormal. [facility]2015-10-24 18:51:00 Test Item Value Reference Range Interpretation Comments Albumin Lvl (test code = Albumin Lvl) 3.5 3.5-5.0 [facility]2015-10-24 18:51:00 Test Item Value Reference Range Interpretation Comments Alk Phos (test code = Alk Phos) 38 39-136 [facility]2015-10-24 18:51:00 Test Item Value Reference Range Interpretation Comments Total Protein (test code = Total 6.2 6.4-8.4 Protein) [facility]2015-10-24 18:51:00 Test Item Value Reference Range Interpretation Comments BUN (test code = BUN) 7 7-22 [facility]2015-10-24 18:51:00 Test Item Value Reference Range Interpretation Comments Creatinine Lvl (test code = Creatinine 0.4 0.5-1.4 Lvl) [facility]2015-10-24 18:51:00 Test Item Value Reference Range Interpretation Comments Glucose Lvl (test code = Glucose Lvl) 73 70-99 [facility]2015-10-24 18:51:00 Test Item Value Reference Range Interpretation Comments Chloride Lvl (test code = Chloride Lvl) 107 95-109 [facility]inteExfssbcGEUFIWBAIMSNO5844-72-98 18:51:00 Test Item Value Reference Range Interpretation Comments hCG Tot (test code = hCG Tot) [address] [facility]NcdskfhOZFKCIKYHK9605-85-79 18:51:00 Test Item Value Reference Range Interpretation Comments Plt Morph (test code = Normal (10/24/15 1:51 Plt Morph) PM) [facility] HospitalRjjavkkEOAZEEXWSV8696-94-42 18:51:00 Test Item Value Reference Range Interpretation Comments Monocytes (test code = Monocytes) 4.4 2.0-12.0 [facility] HospitalQuuulibQJLLACRXER0804-28-79 18:51:00 Test Item Value Reference Range Interpretation Comments Eosinophils (test code = 3.6 See_Comment [A utomated message] The Eosinophils) system which ge nerated this result tra nsmitted reference range : <=4.0. The reference r jericho was not used to int erpret this result as normal/abnormal . [facility] HospitalYlajgbjQIUGOBESAC7539-77-97 18:51:00 Test Item Value Reference Range Interpretation Comments Lymphocytes (test code = Lymphocytes) 18.7 20.0-40.0 [facility] HospitalPildalrYBWRKSISAM1022-62-31 18:51:00 Test Item Value Reference Range Interpretation Comments Segs (test code = Segs) 71.6 45.0-75.0 [facility] HospitalZnyubajWCNZUBUNHV7070-38-89 18:51:00 Test Item Value Reference Range Interpretation Comments Hypochrom (test code = 1+ (07/24/15 1:51 Hypochrom) PM) [facility] HospitalIkyndzsTCVTYOSUJO5971-83-86 18:51:00 Test Item Value Reference Range Interpretation Comments Eosinophils # (test code 0.5 See_Comment [A utomated message] The = Eosinophils #) system whic h generated this result tra nsmitted reference range : <=0.5. The reference r jericho was not used to int erpret this result as normal/abnormal . [facility] HospitalYgzqmfsHEGWEWPHTN8590-20-80 18:51:00 Test Item Value Reference Range Interpretation Comments Basophils # (test code 0.2 See_Comment [Aut omated message] The = Basophils #) system which generated this result tra nsmitted reference range : <=0.2. The reference r jericho was not used to int erpret this result as normal/abnormal . [facility] HospitalZhzzuqzZDEXFBHLSO4375-11-39 18:51:00 Test Item Value Reference Range Interpretation Comments Spherocyte (test code = Slight Spherocyte) *ABN*(07/24/15 1:51 PM) [facility] HospitalUttnrykKFLYTCUOHC1072-07-00 18:51:00 Test Item Value Reference Range Interpretation Comments Segs-Bands # (test code = Segs-Bands #) 9.8 1.5-8.1 [facility] HospitalAbicmvmRPQQRGABIO2980-36-64 18:51:00 Test Item Value Reference Range Interpretation Comments Basophils (test code = 1.7 See_Comment [Aut omated message] The Basophils) system which ge nerated this result tra nsmitted reference range : <=1.0. The reference r jericho was not used to int erpret this result as normal/abnormal . [facility] HospitalRvvmborKTLQGMQFHT6936-18-82 18:51:00 Test Item Value Reference Range Interpretation Comments Monocytes # (test code 0.6 See_Comment [Aut omated message] The = Monocytes #) system which generated this result tra nsmitted reference range : <=0.8. The reference r jericho was not used to int erpret this result as normal/abnormal . [facility] HospitalQcclmveGDHUAEANNV1388-29-28 18:51:00 Test Item Value Reference Range Interpretation Comments Lymphocytes # (test code = Lymphocytes 2.6 1.0-5.5 #) [facility] HospitalYxgooipQMGFHDVEHP9380-06-72 18:51:00 Test Item Value Reference Range Interpretation Comments Platelet (test code = Platelet) 283 133-450 [facility] HospitalYisqtgcVYHUXKBFXB6264-26-78 18:51:00 Test Item Value Reference Range Interpretation Comments MPV (test code = MPV) 7.8 7.4-10.4 [facility] HospitalShrbkesXVXKDLOYTS6525-52-01 18:51:00 Test Item Value Reference Range Interpretation Comments RDW (test code = RDW) 14.8 11.5-14.5 [facility] HospitalQhhlbouPBAHHJUJFT8835-22-81 18:51:00 Test Item Value Reference Range Interpretation Comments MCV (test code = MCV) 95.7 80.0-98.0 [facility] HospitalFthqrlaYQPVQICXRK8828-22-04 18:51:00 Test Item Value Reference Range Interpretation Comments Hgb (test code = Hgb) 12.5 12.0-16.0 [facility] HospitalVcnmedmLCODTDSREZ8361-78-17 18:51:00 Test Item Value Reference Range Interpretation Comments Hct (test code = Hct) 37.2 36.0-48.0 [facility] HospitalJcveceyEYTSWOVUWR9063-49-11 18:51:00 Test Item Value Reference Range Interpretation Comments MCH (test code = MCH) 32.1 pg 27.0-31.0 [facility] HospitalSqdjpppBZNKRZCCWH5534-95-68 18:51:00 Test Item Value Reference Range Interpretation Comments MCHC (test code = MCHC) 33.5 32.0-36.0 [facility] ItiltvbPXKAVTZPDP9830-55-44 18:51:00 Test Item Value Reference Range Interpretation Comments RBC (test code = RBC) 3.89 4.20-5.40 [facility] VxgmzdyHCBDPDCTNB1380-73-72 18:51:00 Test Item Value Reference Range Interpretation Comments WBC (test code = WBC) 13.7 3.7-10.4 [facility] AND [id number] 18:51:00 Test Item Value Reference Range Interpretation Comments UA Blood (test code = Negative (07/24/15 1:51 UA Blood) PM) [facility] AND [id number] 18:51:00 Test Item Value Reference Range Interpretation Comments UA Bili (test code = Negative *NA*(07/24/15 UA Bili) 1:51 PM) [facility] AND [id number] 18:51:00 Test Item Value Reference Range Interpretation Comments UA Ketones (test code Negative *NA*(07/24/15 = UA Ketones) 1:51 PM) [facility] AND [id number] 18:51:00 Test Item Value Reference Range Interpretation Comments UA Protein (test code Negative (07/24/15 1:51 = UA Protein) PM) [facility] [id number] 18:51:00 Test Item Value Reference Range Interpretation Comments UA pH (test code = UA pH) 6.0 1 5.0-8.0 [facility] [id number] 18:51:00 Test Item Value Reference Range Interpretation Comments UA Sq Epi (test code = UA Sq Moderate /LPF Epi) [facility] [id number] 18:51:00 Test Item Value Reference Range Interpretation Comments Micro? (test code = Performed (07/24/15 1:51 Micro?) PM) [facility] [id number] 18:51:00 Test Item Value Reference Range Interpretation Comments UA WBC (test code = UA WBC) 3-5 /HPF [facility] [id number] 18:51:00 Test Item Value Reference Range Interpretation Comments UA Urobilinogen (test code = UA 0.2 0.1-1.0 Urobilinogen) [facility] AND [id number] 18:51:00 Test Item Value Reference Range Interpretation Comments UA Leuk Est (test code Small *ABN*(07/24/15 = UA Leuk Est) 1:51 PM) [facility] AND [id number] 18:51:00 Test Item Value Reference Range Interpretation Comments UA Nitrite (test code Negative (07/24/15 1:51 = UA Nitrite) PM) [facility] AND [id number] 18:51:00 Test Item Value Reference Range Interpretation Comments UA Spec Grav (test code = UA Spec 1.025 1 Grav) [facility] AND [id number] 18:51:00 Test Item Value Reference Range Interpretation Comments UA Color (test code = Yellow *NA*(07/24/15 UA Color) 1:51 PM) [facility] AND [id number] 18:51:00 Test Item Value Reference Range Interpretation Comments UA Turbidity (test code = Clear (07/24/15 1:51 UA Turbidity) PM) [facility] AND [id number] 18:51:00 Test Item Value Reference Range Interpretation Comments UA Glucose (test code Negative (07/24/15 1:51 = UA Glucose) PM) [facility] AND [id number] 18:51:00 Test Item Value Reference Range Interpretation Comments UA Bacteria (test code = UA Moderate /HPF Bacteria) [facility] AND [id number] 18:51:00 Test Item Value Reference Range Interpretation Comments UA RBC (test None Seen See_Comment [Automated [place]] code = UA RBC) (07/24/15 1:51 The system which PM) generated this result transmitted ref erence range: <=2. The reference range was not used to int erpret this result as normal/abnormal . [facility] [id number] 20:05:00 Test Item Value Reference Range Interpretation Comments Globulin (test code = Globulin) 2.9 2.0-4.0 [facility] [id number] 20:05:00 Test Item Value Reference Range Interpretation Comments A/G Ratio (test code = A/G Ratio) 1.5 0.7-1.6 [facility]2015-10-08 20:05:00 Test Item Value Reference Range Interpretation Comments AGAP (test code = AGAP) 14.3 10.0-20.0 [facility]2015-10-08 20:05:00 Test Item Value Reference Range Interpretation Comments B/C Ratio (test code = B/C Ratio) 18 6-25 [facility]2015-10-08 20:05:00 Test Item Value Reference Range Interpretation Comments Alk Phos (test code = Alk Phos) 38 39-136 [facility]2015-10-08 20:05:00 Test Item Value Reference Range Interpretation Comments Bili Total (test code = Bili Total) 0.6 0.2-1.3 [facility]2015-10-08 20:05:00 Test Item Value Reference Range Interpretation Comments AST (test code = AST) 7 See_Comment [Auto mated message] The system which ge nerated this result transmit nallely reference range : <=37. The reference range was not used to interpr et this result as dennys l/abnormal. [facility]2015-10-08 20:05:00 Test Item Value Reference Range Interpretation Comments ALT (test code = ALT) 17 See_Comment [Auto mated message] The system which ge nerated this result transmit nallely reference range : <=65. The reference range was not used to interpr et this result as dennys l/abnormal. [facility]2015-10-08 20:05:00 Test Item Value Reference Range Interpretation Comments Total Protein (test code = Total 7.3 6.4-8.4 Protein) [facility]2015-10-08 20:05:00 Test Item Value Reference Range Interpretation Comments CO2 (test code = CO2) 24 24-32 [facility]2015-10-08 20:05:00 Test Item Value Reference Range Interpretation Comments Glucose Lvl (test code = Glucose Lvl) 125 70-99 [facility]2015-10-08 20:05:00 Test Item Value Reference Range Interpretation Comments eGFR (test code = eGFR) 130 [facility]2015-10-08 20:05:00 Test Item Value Reference Range Interpretation Comments Chloride Lvl (test code = Chloride Lvl) 107 95-109 [facility]2015-10-08 20:05:00 Test Item Value Reference Range Interpretation Comments Potassium Lvl (test code = Potassium 3.3 3.5-5.1 Lvl) [facility]2015-10-08 20:05:00 Test Item Value Reference Range Interpretation Comments Sodium Lvl (test code = Sodium Lvl) 142 135-145 [facility]2015-10-08 20:05:00 Test Item Value Reference Range Interpretation Comments Creatinine Lvl (test code = Creatinine 0.6 0.5-1.4 Lvl) [facility]2015-10-08 20:05:00 Test Item Value Reference Range Interpretation Comments Calcium Lvl (test code = Calcium Lvl) 9.1 8.5-10.5 [facility]2015-10-08 20:05:00 Test Item Value Reference Range Interpretation Comments Albumin Lvl (test code = Albumin Lvl) 4.4 3.5-5.0 [facility]2015-10-08 20:05:00 Test Item Value Reference Range Interpretation Comments BUN (test code = BUN) 11 7-22 [facility] PointeCeaszexTPQEFLUGJIAZW3510-71-14 20:05:00 Test Item Value Reference Range Interpretation Comments hCG Tot (test code = hCG Tot) [address] [facility] HospitalObesjykOYFEKLBSJG7332-07-78 20:05:00 Test Item Value Reference Range Interpretation Comments Lymphocytes (test code = Lymphocytes) 9.5 20.0-40.0 [facility] HospitalVjaiqvoVMEINADEQG5802-99-09 20:05:00 Test Item Value Reference Range Interpretation Comments Segs (test code = Segs) 86.4 45.0-75.0 [facility] HospitalCcpjwsrECRONEIOUG2669-64-42 20:05:00 Test Item Value Reference Range Interpretation Comments Plt Morph (test code = Normal (07/08/15 3:05 Plt Morph) PM) [facility] HospitalJahagqsOWBJLXEFHV5936-22-48 20:05:00 Test Item Value Reference Range Interpretation Comments Eosinophils (test code = 0.0 See_Comment [A utomated message] The Eosinophils) system which ge nerated this result tra nsmitted reference range : <=4.0. The reference r jericho was not used to int erpret this result as normal/abnormal . [facility] HospitalDbhppjgSQTCEARGWL3265-49-77 20:05:00 Test Item Value Reference Range Interpretation Comments Monocytes (test code = Monocytes) 4.1 2.0-12.0 [facility] HospitalYbimybxLQFJRTDRKO7526-01-09 20:05:00 Test Item Value Reference Range Interpretation Comments Macrocyte (test code = 1+ *ABN*(07/08/15 Macrocyte) 3:05 PM) [facility] HospitalPtgbxxjGBLEYBFWHX9675-92-22 20:05:00 Test Item Value Reference Range Interpretation Comments Basophils # (test code 0.0 See_Comment [Aut omated message] The = Basophils #) system which generated this result tra nsmitted reference range : <=0.2. The reference r jericho was not used to int erpret this result as normal/abnormal . [facility] HospitalXhsgyzmTAZPRISGJF7784-98-52 20:05:00 Test Item Value Reference Range Interpretation Comments Eosinophils # (test code 0.0 See_Comment [A utomated message] The = Eosinophils #) system wh h generated this result tra nsmitted reference range : <=0.5. The reference r jericho was not used to int erpret this result as normal/abnormal . [facility] HospitalUmgtzaqGBFJFODRNV0246-20-75 20:05:00 Test Item Value Reference Range Interpretation Comments Segs-Bands # (test code = Segs-Bands #) 14.8 1.5-8.1 [facility] HospitalGvdlrctYDAEQSYSCE3079-26-20 20:05:00 Test Item Value Reference Range Interpretation Comments Basophils (test code = 0.0 See_Comment [Aut omated message] The Basophils) system which ge nerated this result tra nsmitted reference range : <=1.0. The reference r jericho was not used to int erpret this result as normal/abnormal . [facility] HospitalSknanljTCYLMGPAYR7988-28-05 20:05:00 Test Item Value Reference Range Interpretation Comments Lymphocytes # (test code = Lymphocytes 1.6 1.0-5.5 #) [facility] HospitalLbknxkhQBVPLFWEHS6604-77-32 20:05:00 Test Item Value Reference Range Interpretation Comments Monocytes # (test code 0.7 See_Comment [Aut omated message] The = Monocytes #) system which generated this result tra nsmitted reference range : <=0.8. The reference r jericho was not used to int erpret this result as normal/abnormal . [facility] HospitalJicufifVFOCBPSSPR3800-27-34 20:05:00 Test Item Value Reference Range Interpretation Comments MPV (test code = MPV) 8.1 7.4-10.4 [facility] HospitalKalkrnaCZARGTIQJN2425-75-97 20:05:00 Test Item Value Reference Range Interpretation Comments MCV (test code = MCV) 94.1 80.0-98.0 [facility] HospitalZdputcdEYHGUCOTPW1925-30-18 20:05:00 Test Item Value Reference Range Interpretation Comments MCH (test code = MCH) 31.5 pg 27.0-31.0 [facility] HospitalJvparzrPZLEWKDRWO8349-26-58 20:05:00 Test Item Value Reference Range Interpretation Comments MCHC (test code = MCHC) 33.5 32.0-36.0 [facility] HospitalGnbmixwIZKRXZVRZT9381-90-74 20:05:00 Test Item Value Reference Range Interpretation Comments RDW (test code = RDW) 14.4 11.5-14.5 [facility] HospitalTyauiuaERUNQVLWGA1379-11-55 20:05:00 Test Item Value Reference Range Interpretation Comments Platelet (test code = Platelet) 340 133-450 [id number] 20:05:00 Test Item Value Reference Range Interpretation Comments RBC (test code = RBC) 4.04 4.20-5.40 [id number] 20:05:00 Test Item Value Reference Range Interpretation Comments WBC (test code = WBC) 17.2 3.7-10.4 [id number] 20:05:00 Test Item Value Reference Range Interpretation Comments Hgb (test code = Hgb) 12.7 12.0-16.0 [id number] 20:05:00 Test Item Value Reference Range Interpretation Comments Hct (test code = Hct) 38.0 36.0-48.0 [facility] AND [id number] 20:05:00 Test Item Value Reference Range Interpretation Comments UA Urobilinogen (test code = UA <=1.0 mg/dL 0.1-1.0 Urobilinogen) [facility] AND [id number] 20:05:00 Test Item Value Reference Range Interpretation Comments Micro? (test code = Performed *NA*(07/08/15 Micro?) 3:05 PM) [facility] AND [id number] 20:05:00 Test Item Value Reference Range Interpretation Comments UA Mucus (test code = UA Mucus) Many /LPF [facility] [id number] 20:05:00 Test Item Value Reference Range Interpretation Comments UA RBC (test code = 2 See_Comment [Automa nallely message] The UA RBC) system which ge nerated this result transmit nallely reference range : <=2. The reference range was not used to interpr et this result as dennys l/abnormal. [facility] [id number] 20:05:00 Test Item Value Reference Range Interpretation Comments UA Bacteria (test code = UA Occasional /HPF Bacteria) [facility] [id number] 20:05:00 Test Item Value Reference Range Interpretation Comments UA WBC (test code = 5 See_Comment [Automa nallely message] The UA WBC) system which ge nerated this result transmit nallely reference range : <=5. The reference range was not used to interpr et this result as dennys l/abnormal. [facility] AND [id number] 20:05:00 Test Item Value Reference Range Interpretation Comments UA Sq Epi (test code = UA Sq Epi) Many /LPF [facility] AND [id number] 20:05:00 Test Item Value Reference Range Interpretation Comments UA Nitrite (test code Negative (07/08/15 3:05 = UA Nitrite) PM) [facility] AND [id number] 20:05:00 Test Item Value Reference Range Interpretation Comments UA Leuk Est (test Negative (07/08/15 3:05 code = UA Leuk Est) PM) [facility] AND [id number] 20:05:00 Test Item Value Reference Range Interpretation Comments UA Bili (test code = Negative *NA*(07/08/15 UA Bili) 3:05 PM) [facility] AND [id number] 20:05:00 Test Item Value Reference Range Interpretation Comments UA Blood (test code = Negative (07/08/15 3:05 UA Blood) PM) [facility] AND [id number] 20:05:00 Test Item Value Reference Range Interpretation Comments UA Ketones (test code = UA Ketones) 80 mg/dL [facility] AND [id number] 20:05:00 Test Item Value Reference Range Interpretation Comments UA Glucose (test code = UA Glucose) 50mg/dl [facility] AND [id number] 20:05:00 Test Item Value Reference Range Interpretation Comments UA Spec Grav (test code = UA Spec Grav) 1.032 [facility] AND [id number] 20:05:00 Test Item Value Reference Range Interpretation Comments UA Protein (test code = UA Protein) 100 mg/dL [facility] AND [id number] 20:05:00 Test Item Value Reference Range Interpretation Comments UA pH (test code = UA pH) 5.0 5.0-8.0 [facility] AND [id number] 20:05:00 Test Item Value Reference Range Interpretation Comments UA Turbidity (test code Marked *ABN*(07/08/15 = UA Turbidity) 3:05 PM) [facility] AND [id number] 20:05:00 Test Item Value Reference Range Interpretation Comments UA Color (test code = Dark Yellow UA Color) *NA*(07/08/15 3:05 PM) [facility] [id number] 20:05:00 Test Item Value Reference Range Interpretation Comments U Preg (test code = U Positive *ABN*(07/08/15 Preg) 3:05 PM) [facility]
--- NOTE | 2022-06-11 15:43 | ER ---
Nurse's Notes [facility] Name: Maria A Costello Age: 27 yrs Sex: Female : 1995 Arrival Date: 06/11/2022 Time: 15:29 Bed 9 Private MD: Diagnosis: Cutaneous abscess of buttock Presentation: 06/11 15:30 Chief complaint: Abscess on left buttock x 2 days. hb 15:30 Method Of Arrival: Ambulatory hb 15:30 Coronavirus screen: At this time, the client does not indicate any symptoms associated hb with coronavirus-19. Ebola Screen: No symptoms or risks identified at this time. Initial Sepsis Screen: Does the patient meet any 2 criteria? No. Patient's initial sepsis screen is negative. Does the patient have a suspected source of infection? No. Patient's initial sepsis screen is negative. Risk Assessment: Do you want to hurt yourself or someone else? Patient reports no desire to harm self or others. Onset of symptoms was June 10, 2022. 15:30 Acuity: JOSH 4 hb Triage Assessment: 15:41 General: Appears in no apparent distress. Behavior is calm, cooperative. Pain: Pain hb currently is 5 out of 10 on a pain scale. EENT: No signs and/or symptoms were reported regarding the EENT system. Neuro: Level of Consciousness is awake, alert, obeys commands, Oriented to person, place, time, situation. Cardiovascular: Patient's skin is warm and dry. Respiratory: Respiratory effort is even, unlabored, Respiratory pattern is regular, symmetrical. GI: No signs and/or symptoms were reported involving the gastrointestinal system. : No signs and/or symptoms were reported regarding the genitourinary system. Derm: Skin is pink, warm \T\ dry. Musculoskeletal: No signs and/or symptoms reported regarding the musculoskeletal system. Historical: - Allergies: 15:41 No Known Allergies; hb - Home Meds: 15:41 None [Active]; hb - PMHx: 15:41 None; hb - PSHx: 15:41 None; hb - Immunization history:: Adult Immunizations up to date. - Social history:: Smoking status: Patient denies any tobacco usage or history of. Screenin:42 Abuse screen: Denies threats or abuse. Denies injuries from another. Nutritional hb screening: No deficits noted. Tuberculosis screening: No symptoms or risk factors identified. Fall Risk None identified. Assessment: 15:42 General: See triage assessment. hb Vital Signs: 15:30 BP 115 / 55; Pulse 78; Resp 16; Temp 98.1(O); Pulse Ox 100% ; Weight 56.7 kg; Height 5 hb ft. 1 in. (154.94 cm); Pain 5/10; 15:30 Body Mass Index 23.62 (56.70 kg, 154.94 cm) hb ED Course: 15:29 Patient arrived in ED. rg4 15:30 [facility] Cancino [facility]-C [facility] snw 15:30 Garcia Rosario MD is Attending Physician. snw 15:41 Triage completed. hb 15:41 Arm band placed on. hb 15:42 Patient has correct armband on for positive identification. hb 15:42 No provider procedures requiring assistance completed. Patient did not have IV access hb during this emergency room visit. Administered Medications: 15:42 Drug: Hibiclens (chlorhexidine) Liquid 4 % 1 application Route: Topical; Site: affected hb area; 15:45 Follow up: Response: Medication administered at discharge. hb Medication: 15:42 VIS not applicable for this client. hb Outcome: 15:42 Discharge ordered by . snw 15:45 Discharged to home ambulatory. hb 15:45 Condition: stable 15:45 Discharge instructions given to patient, Instructed on discharge instructions, follow up and referral plans. Demonstrated understanding of instructions, follow-up care. 15:45 Patient left the ED. hb Signatures: Joanna Cancino FNP-C FNP-Natty Fitch RN RN Loida Fernandez rg4
--- NOTE | 2022-06-11 15:43 | EDPHYS ---
Physician Documentation [facility] Name: Maria A Costello Age: 27 yrs Sex: Female : 1995 Arrival Date: 06/11/2022 Time: 15:29 Bed 9 Private MD: VICKY Physician Garcia Rosario HPI: 06/11 15:45 This 27 yrs old Female presents to ER via Ambulatory with complaints of Insect Bite. snw 15:45 The patient presents with an abscess of the left gluteus domi. Description: The snw affected area is small, well demarcated, erythematous, fluctuant, warm. Onset: The symptoms/episode began/occurred gradually, 4 day(s) ago, and became persistent. Possible cause(s): unknown. Associated signs and symptoms: The patient has no apparent associated signs or symptoms. Modifying factors: the symptoms are alleviated by nothing. Severity of symptoms: At their worst the symptoms were mild, moderate. The patient has not experienced similar symptoms in the past. The patient has not recently seen a physician. Historical: - Allergies: 15:41 No Known Allergies; hb - Home Meds: 15:41 None [Active]; hb - PMHx: 15:41 None; hb - PSHx: 15:41 None; hb - Immunization history:: Adult Immunizations up to date. - Social history:: Smoking status: Patient denies any tobacco usage or history of. ROS: 15:45 Constitutional: Negative for fever, chills, and weight loss, Eyes: Negative for injury, snw pain, redness, and discharge, ENT: Negative for injury, pain, and discharge, Neck: Negative for injury, pain, and swelling, Cardiovascular: Negative for chest pain, palpitations, and edema, Respiratory: Negative for shortness of breath, cough, wheezing, and pleuritic chest pain, Abdomen/GI: Negative for abdominal pain, nausea, vomiting, diarrhea, and constipation, Back: Negative for injury and pain, : Negative for injury, bleeding, discharge, and swelling, MS/Extremity: Negative for injury and deformity, Neuro: Negative for headache, weakness, numbness, tingling, and seizure, Psych: Negative for depression, anxiety, suicide ideation, homicidal ideation, and hallucinations. 15:45 Skin: Positive for abscess, of the left gluteus domi. Exam: 15:44 Constitutional: This is a well developed, well nourished patient who is awake, alert, snw and in no acute distress. Head/Face: Normocephalic, atraumatic. Eyes: Pupils equal round and reactive to light, extra-ocular motions intact. Lids and lashes normal. Conjunctiva and sclera are non-icteric and not injected. Cornea within normal limits. Periorbital areas with no swelling, redness, or edema. ENT: Nares patent. No nasal discharge, no septal abnormalities noted. Tympanic membranes are normal and external auditory canals are clear. Oropharynx with no redness, swelling, or masses, exudates, or evidence of obstruction, uvula midline. Mucous membranes moist. Neck: Trachea midline, no thyromegaly or masses palpated, and no cervical lymphadenopathy. Supple, full range of motion without nuchal rigidity, or vertebral point tenderness. No Meningismus. Chest/axilla: Normal chest wall appearance and motion. Nontender with no deformity. No lesions are appreciated. Cardiovascular: Regular rate and rhythm with a normal S1 and S2. No gallops, murmurs, or rubs. Normal PMI, no JVD. No pulse deficits. Respiratory: Lungs have equal breath sounds bilaterally, clear to auscultation and percussion. No rales, rhonchi or wheezes noted. No increased work of breathing, no retractions or nasal flaring. Abdomen/GI: Soft, non-tender, with normal bowel sounds. No distension or tympany. No guarding or rebound. No evidence of tenderness throughout. Back: No spinal tenderness. No costovertebral tenderness. Full range of motion. MS/ Extremity: Pulses equal, no cyanosis. Neurovascular intact. Full, normal range of motion. Neuro: Awake and alert, GCS 15, oriented to person, place, time, and situation. Cranial nerves II-XII grossly intact. Motor strength 5/5 in all extremities. Sensory grossly intact. Cerebellar exam normal. Normal gait. Psych: Awake, alert, with orientation to person, place and time. Behavior, mood, and affect are within normal limits. 15:44 Skin: Appearance: normal except for affected area, lesion(s), noted, and can be described as erythematous, tender, papule(s) noted, located on the left gluteus domi. Vital Signs: 15:30 BP 115 / 55; Pulse 78; Resp 16; Temp 98.1(O); Pulse Ox 100% ; Weight 56.7 kg; Height 5 hb ft. 1 in. (154.94 cm); Pain 5/10; 15:30 Body Mass Index 23.62 (56.70 kg, 154.94 cm) hb Procedures: 15:43 I \T\ D: Incision and drainage was performed for an abscess of the left left gluteus snw domi Prepped with hibiclens. Anesthetized with nothing. Incised with 18g needle. Drained moderate amount purulent fluid. Dressing: sterile 4x4 gauze, the patient tolerated the procedure well. MDM: 15:31 Patient medically screened. snw 15:43 Data reviewed: vital signs, nurses notes. Data interpreted: Pulse oximetry: on room air snw is 100 %. Interpretation: normal. Counseling: I had a detailed discussion with the patient and/or guardian regarding: the historical points, exam findings, and any diagnostic results supporting the discharge/admit diagnosis, the need for outpatient follow up, to return to the emergency department if symptoms worsen or persist or if there are any questions or concerns that arise at home. Response to treatment: the patient's symptoms have markedly improved after treatment. Special discussion: Based on the history and exam findings, there is no indication for further emergent testing or inpatient evaluation. I discussed with the patient/guardian the need to see the primary care provider for further evaluation of the symptoms. Administered Medications: 15:42 Drug: Hibiclens (chlorhexidine) Liquid 4 % 1 application Route: Topical; Site: affected hb area; 15:45 Follow up: Response: Medication administered at discharge. hb Disposition Summary: 06/11/22 15:42 Discharge Ordered Location: Home snw Condition: Stable snw Diagnosis - Cutaneous abscess of buttock snw Followup: snw - With: Emergency Department - When: As needed - Reason: Worsening of condition Followup: snw - With: Private Physician - When: 2 - 3 days - Reason: Recheck today's complaints, Continuance of care, Re-evaluation by your physician Discharge Instructions: - Discharge Summary Sheet snw - Skin Abscess snw - Wound Care, Adult snw Forms: - Medication Reconciliation Form snw - Thank You Letter snw - Antibiotic Education snw - Prescription Opioid Use snw Signatures: Joanna Cancino, IN [employer] REPA[employer]ER-C IN [employer] REPA[employer]ER-Csnw Natty Bhatia, RN RN hb
[2022-06-11 16:19] VITALS: BP 115/55; TEMP 98.1; O2SAT 100
== END 2022-06-11 15:45 | disposition home or self-care (01) ==
LOC: ER 15:27
PROC: 0H98XZZ Drainage of Buttock Skin, External Approach (ICD-10-PCS; principal; 2022-06-11)
DX: L02.31 Cutaneous abscess of buttock (principal)
CPT/HCPCS: 99283